=== PATIENT | female | born 1960 | race African-American/Black ===

== ENCOUNTER 2018-08-16 19:58 | Inpatient (IN) | payer MEDICARE, MEDICAID ==
[~2018-08-16] VITALS: Ht 170.2 cm; Wt 115.7 kg
[2018-08-16 21:26] LABS: CHLORIDE 111 mEq/L (98-107)
[2018-08-16 22:59] LABS: EOSINOPHILS % 2.5 % (0.0-5.0); HEMATOCRIT. 33.3 % (36.0-48.0); HEMOGLOBIN. 10.7 g/dL (12.0-16.0); LYMPHOCYTES % 41.6 % (20.0-50.0); MEAN CORPUSCULAR HEMOGLOBIN 25.4 pg (28.0-32.0); MEAN CORPUSCULAR VOLUME 79.3 fL (81.0-99.0); MONOCYTES % 12.6 % (2.0-8.0); NEUTROPHILS % 42.3 % (40.0-76.0); RED CELL DISTRIBUTION WIDTH 15.2 % (11.6-14.6)
[2018-08-17] MEDS ORDERED: DEXT 5%/0.45% NACL 1000ML 1,000 ML IV SCH (01:10)
[2018-08-17] MEDS ORDERED: GUAIFENESIN 200MG/10ML SUGAR FREE UDC PO PRN (01:15)
[2018-08-17] MEDS ORDERED: MAGNESIUM/ALUMINUM HYDROXIDE/SIMETHICONE 30ML UDC PO PRN (01:15)
[2018-08-17] MEDS ORDERED: DIPHENHYDRAMINE 50MG/ML VIAL IV PRN (01:15)
[2018-08-17] MEDS ORDERED: LORAZEPAM 0.5MG TABLET PO PRN (01:15)
[2018-08-17] MEDS ORDERED: MORPHINE SULFATE 4 MG/ML CPJ (NOT FOR IM USE) IV ONE (01:15)
[2018-08-17] MEDS ORDERED: HYDROCODONE/ACETAMINOPHEN 5/325MG TABLET PO PRN (01:15)
[2018-08-17] MEDS ORDERED: ASPIRIN 81MG TABLET PO ONE (01:15)
[2018-08-17] MEDS ORDERED: METHYLPREDNISOLONE SOD SUCC 125 MG/2 ML VIAL IV SCH ×3 (01:15→03:00)
[2018-08-17] MEDS ORDERED: IPRATROPIUM/ALBUTEROL 0.5-3(2.5)MG/3ML NEB INH PRN (01:15)
[2018-08-17] MEDS ORDERED: DOCUSATE SODIUM 100MG CAPSULE PO PRN (01:15)
[2018-08-17] MEDS ORDERED: CLONIDINE 0.1MG TABLET PO PRN (01:15)
[2018-08-17] MEDS ORDERED: ACETAMINOPHEN 325MG TABLET PO PRN (01:15)
[2018-08-17] MEDS ORDERED: ONDANSETRON HCL 4MG/2ML INJ IV PRN (01:15)
[2018-08-17] MEDS ORDERED: LIDOCAINE/EPINEPHR/TETRACAINE 3ML TP ONE (01:30)
[2018-08-17] MEDS ORDERED: HYDRALAZINE 20MG/ML VIAL IV PRN (03:15)
[2018-08-17 05:00] VITALS: BP 183/68
[2018-08-17] MEDS ORDERED: HYDR-4009 PO (05:19)
[2018-08-17] MEDS ORDERED: LISI40TA4 PO (05:19)
[2018-08-17] MEDS ORDERED: ASPI-1159 PO (05:19)
[2018-08-17] MEDS ORDERED: FOLI-43 PO (05:19)
[2018-08-17] MEDS ORDERED: AZAT50TA18 PO (05:19)
[2018-08-17] MEDS ORDERED: VERA240C2 PO (05:19)
[2018-08-17] MEDS ORDERED: IOHEXOL-350 100 ML BOTTLE ONE (05:40)
[2018-08-17 08:00] VITALS: BP 171/69
[2018-08-17 08:56] LABS: INR 0.9; PARTIAL THROMBOPLASTIN TIME 23.6 sec (23.4-31.0); PROTHROMBIN TIME 9.4 sec (9.1-11.1)
[2018-08-17 09:12] LABS: PHOSPHORUS 2.3 mg/dL (2.5-4.9)
[2018-08-17] MEDS: LISINOPRIL 20MG TABLET PO SCH ×2 (09:34→21:28)
[2018-08-17 10:06] LABS: BASOPHILS % 0.3 % (0.0-2.0); EOSINOPHILS % 0.1 % (0.0-5.0); HEMATOCRIT. 34.4 % (36.0-48.0); MEAN CORPUSCULAR HEMOGLOBIN 25.4 pg (28.0-32.0); MEAN CORPUSCULAR VOLUME 79.2 fL (81.0-99.0); MEAN PLATELET VOLUME 11.7 fl (7.4-10.4); MONOCYTES % 1.8 % (2.0-8.0); NEUTROPHILS % 80.8 % (40.0-76.0); PLATELET 128 x1000/uL (130-400); RED BLOOD CELL COUNT 4.35 mill/uL (4.2-5.4); RED CELL DISTRIBUTION WIDTH 15.6 % (11.6-14.6)
[2018-08-17 11:40] VITALS: BP 157/74
[2018-08-17 16:07] VITALS: BP 142/73
[2018-08-17] MEDS: HYDROCODONE/ACETAMINOPHEN 10/325MG TABLET PO PRN ×2 (16:08→21:36)
[2018-08-17] MEDS: VERAPAMIL HCL 80 MG TABLET PO SCH ×2 (16:14→21:28)
[2018-08-17 19:09] LABS: INR 0.9; PROTHROMBIN TIME 9.4 sec (9.1-11.1)
[2018-08-17 20:00] VITALS: BP 148/58
[2018-08-17] MEDS ORDERED: VERAPAMIL HCL 120 MG PO SCH (21:00)
[2018-08-18 00:01] VITALS: BP 134/55
[2018-08-18 03:51] VITALS: BP 140/56
[2018-08-18] MEDS: VERAPAMIL HCL 80 MG TABLET PO SCH ×3 (06:01→20:32)
[2018-08-18] MEDS: HYDROCODONE/ACETAMINOPHEN 10/325MG TABLET PO PRN (06:01)
[2018-08-18 06:15] LABS: CHLORIDE 109 mEq/L (98-107)
[2018-08-18 06:17] LABS: HEMATOCRIT. 30.8 % (36.0-48.0); MEAN CORPUSCULAR HEMOGLOBIN 25.7 pg (28.0-32.0); MEAN CORPUSCULAR VOLUME 79.2 fL (81.0-99.0); MEAN PLATELET VOLUME 11.3 fl (7.4-10.4); PLATELET 126 x1000/uL (130-400); RED BLOOD CELL COUNT 3.89 mill/uL (4.2-5.4)
[2018-08-18 06:37] LABS: LDL CHOLESTEROL 83 mg/dL (5-100)
[2018-08-18 06:39] LABS: HDL CHOLESTEROL 50 mg/dL (40-59); T4 FREE 0.87 ng/dL (0.76-1.46)
[2018-08-18 08:01] VITALS: BP 128/80
[2018-08-18 09:59] LABS: PLATELET ESTIMATE SLIGHTLY DECREASED
[2018-08-18] MEDS: LISINOPRIL 20MG TABLET PO SCH ×2 (10:00→20:31)
[2018-08-18 12:04] VITALS: BP 136/61
[2018-08-18] MEDS ORDERED: LIDOCAINE HCL 1% 20ML VIAL (Pyxis) INJ ONE (14:29)
[2018-08-18] MEDS: MORPHINE SULFATE 4 MG/ML CPJ (NOT FOR IM USE) IV PRN ×2 (15:56→20:33)
[2018-08-18 16:00] LABS: GLUCOSE CSF 55 mg/dL (41-75)
[2018-08-18 16:52] VITALS: BP 156/74
[2018-08-18 20:00] VITALS: BP 158/65
[2018-08-19] VITALS: BP 149/66
[2018-08-19] MEDS: MORPHINE SULFATE 4 MG/ML CPJ (NOT FOR IM USE) IV PRN ×4 (01:49→21:47)
[2018-08-19 04:00] VITALS: BP 135/64
[2018-08-19 07:39] LABS: HEMATOCRIT 33.5 % (36.0-48.0); HEMOGLOBIN 10.8 g/dL (12.0-16.0); MEAN CORPUSCULAR HEMOGLOBIN 25.6 pg (28.0-32.0); MEAN CORPUSCULAR VOLUME 79.5 fL (81.0-99.0); PLATELET 144 x1000/uL (130-400); RED BLOOD CELL COUNT 4.22 mill/uL (4.2-5.4); RED CELL DISTRIBUTION WIDTH 15.1 % (11.6-14.6)
[2018-08-19 08:29] VITALS: BP 138/74
[2018-08-19 08:45] LABS: CHLORIDE 107 mEq/L (98-107)
[2018-08-19] MEDS: LISINOPRIL 20MG TABLET PO SCH ×2 (08:55→21:41)
[2018-08-19] MEDS: VERAPAMIL HCL 80 MG TABLET PO SCH ×2 (08:55→21:40)
[2018-08-19 12:57] VITALS: BP 125/57
[2018-08-19 16:34] VITALS: BP 135/66
[2018-08-19 18:00] LABS: *AMPHETAMINES SCREEN URINE NEGATIVE (NEGATIVE); *BARBITURATES SCREEN URINE NEGATIVE (NEGATIVE); *BENZODIAZEPINES SCREEN URINE NEGATIVE (NEGATIVE); *COCAINE SCREEN URINE NEGATIVE (NEGATIVE); METHADONE URINE SCREEN NEGATIVE (NEGATIVE)
[2018-08-19 18:01] LABS: CANNABINOID URINE SCREEN PRESUMTIVE POSITIVE (NEGATIVE); OPIATES URINE SCREEN PRESUMTIVE POSITIVE (NEGATIVE); PHENCYCLIDINE URINE SCREEN NEGATIVE (NEGATIVE)
[2018-08-19 20:00] VITALS: BP 121/58
[2018-08-19] MEDS: TOPIRAMATE 25MG TABLET PO SCH (21:00)
[2018-08-20] VITALS: BP 136/57
[2018-08-20] MEDS: MORPHINE SULFATE 4 MG/ML CPJ (NOT FOR IM USE) IV PRN ×2 (02:34→09:56)
[2018-08-20 05:00] VITALS: BP 141/64
[2018-08-20 08:06] VITALS: BP 118/55
[2018-08-20] MEDS: LISINOPRIL 20MG TABLET PO SCH ×2 (08:15→20:28)
[2018-08-20] MEDS: VERAPAMIL HCL 80 MG TABLET PO SCH ×2 (08:15→20:22)
[2018-08-20] MEDS: TOPIRAMATE 25MG TABLET PO SCH (08:18)
[2018-08-20 10:16] LABS: BASOPHILS % 0.8 % (0.0-2.0); EOSINOPHILS % 2.4 % (0.0-5.0); HEMATOCRIT. 33.7 % (36.0-48.0); HEMOGLOBIN. 10.8 g/dL (12.0-16.0); LYMPHOCYTES % 37.2 % (20.0-50.0); MEAN CORPUSCULAR HEMOGLOBIN 25.5 pg (28.0-32.0); MEAN CORPUSCULAR VOLUME 79.3 fL (81.0-99.0); MEAN PLATELET VOLUME 10.8 fl (7.4-10.4); MONOCYTES % 13.3 % (2.0-8.0); NEUTROPHILS % 46.3 % (40.0-76.0); PLATELET 147 x1000/uL (130-400); RED BLOOD CELL COUNT 4.25 mill/uL (4.2-5.4)
[2018-08-20 10:40] LABS: CHLORIDE 104 mEq/L (98-107)
[2018-08-20 11:59] VITALS: BP 146/50
[2018-08-20] MEDS: ACETAZOLAMIDE 250MG TABLET PO SCH ×2 (12:30→20:22)
[2018-08-20] MEDS: HYDROCODONE/ACETAMINOPHEN 10/325MG TABLET PO PRN ×2 (14:52→20:23)
[2018-08-20 15:54] VITALS: BP 139/58
[2018-08-20 20:00] VITALS: BP 133/68
[2018-08-21] VITALS: BP 110/60
[2018-08-21] MEDS: HYDROCODONE/ACETAMINOPHEN 10/325MG TABLET PO PRN ×2 (01:38→08:51)
[2018-08-21 04:00] VITALS: BP 119/51
[2018-08-21 06:17] LABS: BASOPHILS % 0.4 % (0.0-2.0); EOSINOPHILS % 2.9 % (0.0-5.0); HEMATOCRIT. 33.7 % (36.0-48.0); HEMOGLOBIN. 10.9 g/dL (12.0-16.0); LYMPHOCYTES % 33.9 % (20.0-50.0); MEAN CORPUSCULAR HEMOGLOBIN 25.9 pg (28.0-32.0); MEAN CORPUSCULAR VOLUME 79.8 fL (81.0-99.0); MEAN PLATELET VOLUME 10.6 fl (7.4-10.4); MONOCYTES % 12.7 % (2.0-8.0); NEUTROPHILS % 50.1 % (40.0-76.0); PLATELET 149 x1000/uL (130-400); RED BLOOD CELL COUNT 4.23 mill/uL (4.2-5.4)
[2018-08-21 06:27] LABS: CHLORIDE 106 mEq/L (98-107)
[2018-08-21 08:02] VITALS: BP 131/57
[2018-08-21] MEDS: ACETAZOLAMIDE 250MG TABLET PO SCH (08:37)
[2018-08-21] MEDS: LISINOPRIL 20MG TABLET PO SCH (08:38)
[2018-08-21] MEDS: VERAPAMIL HCL 80 MG TABLET PO SCH (08:38)
[2018-08-21] MEDS ORDERED: ACET250T3 PO (10:52)
[2018-08-21 12:00] VITALS: BP 145/63
[2018-08-21 14:39] VITALS: BP 145/63
== END 2018-08-21 16:32 | disposition home or self-care (01) | DRG 103 ==
LOC: ER 19:58 → 6WST 23:59 → EDBEDREQTM 08-17 00:07 → EDBEDREQ 08-17 00:07 → ENRESERV 08-17 00:10 → 6WST 08-17 04:30
PROVIDERS: ADMIT Specialist; ATTEND Specialist
PROC: 009U3ZX Drainage of Spinal Canal, Percutaneous Approach, Diagnostic (ICD-10-PCS; principal; 2018-08-18)
PROC: B01B1ZZ Fluoroscopy of Spinal Cord using Low Osmolar Contrast (ICD-10-PCS; 2018-08-18)
DX: G93.2 Benign intracranial hypertension (principal); I42.9 Cardiomyopathy, unspecified; M32.9 Systemic lupus erythematosus, unspecified; F41.9 Anxiety disorder, unspecified; I10 Essential (primary) hypertension; I25.10 Atherosclerotic heart disease of native coronary artery without angina pectoris; R07.89 Other chest pain; J45.909 Unspecified asthma, uncomplicated; M41.9 Scoliosis, unspecified; I48.0 Paroxysmal atrial fibrillation; R32 Unspecified urinary incontinence; R79.89 Other specified abnormal findings of blood chemistry; Z60.2 Problems related to living alone; Z90.710 Acquired absence of both cervix and uterus; Z90.49 Acquired absence of other specified parts of digestive tract; I25.2 Old myocardial infarction; Z82.49 Family history of ischemic heart disease and other diseases of the circulatory system; Z87.81 Personal history of (healed) traumatic fracture
CPT/HCPCS: 36415; 62270; 70450; 70490; 70544; 70551; 71045; 71275; 77003; 80048; 80053; 80061; 80305; 82945; 83690; 83735; 83880; 84100; 84157; 84439; 84443; 84484; 85025; 85027; 85576; 85610; 85651; 85730; 86141; 86635; 87070; 87205; 87252; 87899; 89050; 93005; 93306; 93970; 96361; 96374; 99285; J2270; J2405; J2930; J3490; Q9967

== ENCOUNTER 2019-05-19 22:52 | Inpatient (IN) | payer MEDICARE, MEDICAID ==
[~2019-05-19] VITALS: Ht 170.2 cm; Wt 129.3 kg
[~2019-05-19 22:52] MED LIST: ACET250T3 PO; ASPI-1393 PO; AZAT50TA18 PO; FOLI-43 PO; HYDR-4009 PO; LISI40TA4 PO; VERA240C2 PO
[2019-05-20] MEDS ORDERED: ASPIRIN 325MG EC TABLET PO ONE (00:15)
[2019-05-20 00:35] LABS: BASOPHILS % 0.2 % (0.0-2.0); EOSINOPHILS % 2.4 % (0.0-5.0); HEMATOCRIT. 32.5 % (36.0-48.0); HEMOGLOBIN. 10.4 g/dL (12.0-16.0); LYMPHOCYTES % 39.8 % (20.0-50.0); MEAN CORPUSCULAR HEMOGLOBIN 25.3 pg (28.0-32.0); MEAN CORPUSCULAR VOLUME 78.6 fL (81.0-99.0); MEAN PLATELET VOLUME 9.3 fl (7.4-10.4); NEUTROPHILS % 45.6 % (40.0-76.0); PLATELET 207 x1000/uL (130-400); RED BLOOD CELL COUNT 4.14 mill/uL (4.2-5.4); RED CELL DISTRIBUTION WIDTH 15.9 % (11.6-14.6)
[2019-05-20 00:39] LABS: CHLORIDE 109 mEq/L (98-107)
[2019-05-20] MEDS ORDERED: IOHEXOL-350 100 ML BOTTLE ONE (03:49)
[2019-05-20 04:00] VITALS: BP 159/60
[2019-05-20] MEDS ORDERED: ALBU4TAB6 PO (05:06)
[2019-05-20] MEDS ORDERED: PRED-276 PO (05:06)
[2019-05-20] MEDS ORDERED: HYDR200T80 PO (05:06)
[2019-05-20] MEDS ORDERED: MEDICATION NOT ON FORMULARY EA (Hydrocodone Bit/Acetaminophen (Hydrocodon-Acetaminophn 1 PO SCH (07:15)
[2019-05-20] MEDS ORDERED: ATEN50TA PO (07:18)
[2019-05-20 08:00] VITALS: BP 135/60
[2019-05-20] MEDS ORDERED: MEDICATION NOT ON FORMULARY EA (Hydrocodone Bit/Acetaminophen (Hydrocodon-Acetaminophn 1 PO PRN (08:00)
[2019-05-20] MEDS ORDERED: ATENOLOL PO SCH (09:00)
[2019-05-20] MEDS ORDERED: PREDNISOLONE PO SCH (09:00)
[2019-05-20] MEDS ORDERED: ASPIRIN 81MG TABLET PO SCH (09:00)
[2019-05-20] MEDS ORDERED: HYDROXYCHLOROQUINE SULFATE PO SCH (09:00)
[2019-05-20] MEDS ORDERED: MEDICATION NOT ON FORMULARY EA (Folic Acid 1 MG) PO SCH (09:00)
[2019-05-20] MEDS: FOLIC ACID 1MG TABLET PO SCH (09:14)
[2019-05-20] MEDS: ENOXAPARIN 30MG/0.3ML SYR SUBCUT SCH ×2 (09:15→20:14)
[2019-05-20] MEDS: PREDNISONE 20MG TABLET PO SCH ×2 (09:15→17:47)
[2019-05-20] MEDS: HYDROCODONE/ACETAMINOPHEN 10/325MG TABLET PO PRN ×3 (09:15→21:45)
[2019-05-20] MEDS ORDERED: AZAT50TA18 PO (09:25)
[2019-05-20 12:00] VITALS: BP 186/86
[2019-05-20] MEDS: LISINOPRIL 40MG TABLET PO SCH (12:04)
[2019-05-20] MEDS: ATENOLOL 25MG TABLET PO SCH ×2 (12:30→20:14)
[2019-05-20 16:00] VITALS: BP 166/80
[2019-05-20 17:00] VITALS: BP 138/60
[2019-05-20] MEDS ORDERED: CLONIDINE 0.1MG TABLET PO PRN (19:30)
[2019-05-20 20:00] VITALS: BP 160/59
[2019-05-21] VITALS (8 sets, daily range): BP systolic 106–178; BP diastolic 49–81
[2019-05-21] MEDS: HYDROCODONE/ACETAMINOPHEN 10/325MG TABLET PO PRN ×3 (02:12→13:59)
[2019-05-21] MEDS ORDERED: ONDANSETRON HCL 4MG/2ML INJ IV PRN (06:15)
[2019-05-21 07:16] LABS: BASOPHILS % 0.3 % (0.0-2.0); HEMATOCRIT. 32.2 % (36.0-48.0); LYMPHOCYTES % 36.5 % (20.0-50.0); MEAN CORPUSCULAR HEMOGLOBIN 24.7 pg (28.0-32.0); MEAN CORPUSCULAR VOLUME 79.4 fL (81.0-99.0); MEAN PLATELET VOLUME 10.5 fl (7.4-10.4); MONOCYTES % 9.3 % (2.0-8.0); NEUTROPHILS % 53.9 % (40.0-76.0); PLATELET 197 x1000/uL (130-400); RED BLOOD CELL COUNT 4.05 mill/uL (4.2-5.4)
[2019-05-21] MEDS ORDERED: ASPIRIN 81MG EC TABLET PO SCH (09:00)
[2019-05-21] MEDS: ATENOLOL 25MG TABLET PO SCH (09:00)
[2019-05-21] MEDS ORDERED: ASPIRIN 81MG TABLET PO SCH (09:00)
[2019-05-21] MEDS: LISINOPRIL 40MG TABLET PO SCH (09:09)
[2019-05-21] MEDS: PREDNISONE 20MG TABLET PO SCH (09:09)
[2019-05-21] MEDS: FOLIC ACID 1MG TABLET PO SCH (09:09)
[2019-05-21] MEDS: ENOXAPARIN 30MG/0.3ML SYR SUBCUT SCH (09:11)
[2019-05-21 09:45] LABS: CHLORIDE 108 mEq/L (98-107)
== END 2019-05-21 17:20 | disposition home or self-care (01) | DRG 392 ==
LOC: ER 22:52 → 7WST 05-20 01:35 → EDBEDREQTM 05-20 01:42 → EDBEDREQ 05-20 01:42 → ENRESERV 05-20 02:35
PROVIDERS: ADMIT Family Medicine; ATTEND Family Medicine
DX: K21.9 Gastro-esophageal reflux disease without esophagitis (principal); Z68.41 Body mass index [BMI] 40.0-44.9, adult; W18.39XA Other fall on same level, initial encounter; F41.9 Anxiety disorder, unspecified; I11.9 Hypertensive heart disease without heart failure; I48.0 Paroxysmal atrial fibrillation; M32.9 Systemic lupus erythematosus, unspecified; M79.7 Fibromyalgia; E66.9 Obesity, unspecified; Y93.89 Activity, other specified; Y92.89 Other specified places as the place of occurrence of the external cause; Y99.8 Other external cause status; Z79.82 Long term (current) use of aspirin; Z82.49 Family history of ischemic heart disease and other diseases of the circulatory system; Z90.49 Acquired absence of other specified parts of digestive tract; Z90.710 Acquired absence of both cervix and uterus; Z88.0 Allergy status to penicillin; Z79.899 Other long term (current) drug therapy; Z87.81 Personal history of (healed) traumatic fracture
CPT/HCPCS: 36415; 71045; 71275; 80048; 83880; 84484; 85379; 93005; 93306; 99285; J1650; J2405; J7512; Q9967

== ENCOUNTER 2020-07-27 04:46 | Inpatient (IN) | payer MEDICARE, MEDICAID ==
[~2020-07-27] VITALS: Ht 172.7 cm; Wt 133.0 kg
[2020-07-27] VITALS (10 sets, daily range): BP systolic 111–184; BP diastolic 44–107
[~2020-07-27 04:46] MED LIST changes: -ASPI-1393 PO; +ASPI-1497 PO; +ATEN50TA PO; -LISI40TA4 PO; +PRED-276 PO; -VERA240C2 PO
[2020-07-27] MEDS ORDERED: ASPIRIN 81MG TABLET PO ONE (05:00)
[2020-07-27 05:34] LABS: BASOPHILS % 0.3 % (0.0-2.0); EOSINOPHILS % 0.1 % (0.0-5.0); HEMATOCRIT. 22.9 % (36.0-48.0); HEMOGLOBIN. 7.6 g/dL (12.0-16.0); LYMPHOCYTES % 18.9 % (20.0-50.0); MEAN CORPUSCULAR HEMOGLOBIN 31.4 pg (28.0-32.0); MEAN CORPUSCULAR VOLUME 95.2 fL (81.0-99.0); MEAN PLATELET VOLUME 10.5 fl (7.4-10.4); MONOCYTES % 7.4 % (2.0-8.0); NEUTROPHILS % 73.3 % (40.0-76.0); PLATELET 120 x1000/uL (130-400); RED CELL DISTRIBUTION WIDTH 14.8 % (11.6-14.6)
[2020-07-27 05:36] LABS: CHLORIDE 108 mEq/L (98-107)
[2020-07-27 08:40] LABS: T4 FREE 1.04 ng/dL (0.76-1.46)
[2020-07-27 10:31] LABS: PHOSPHORUS 2.7 mg/dL (2.5-4.9)
[2020-07-27] MEDS: FOLIC ACID 1MG TABLET PO SCH (10:43)
[2020-07-27] MEDS: PREDNISONE 20MG TABLET PO SCH ×2 (10:43→17:54)
[2020-07-27] MEDS: AZATHIOPRINE 50MG TABLET PO SCH ×2 (10:43→17:54)
[2020-07-27] MEDS ORDERED: CLON0.2T MT (11:07)
[2020-07-27] MEDS ORDERED: VERA120C10 MT (11:07)
[2020-07-27] MEDS: HYDROCODONE/ACETAMINOPHEN 10/325MG TABLET PO PRN ×2 (11:22→18:49)
[2020-07-27] MEDS: SODIUM CHLORIDE 0.9% 1,000 ML IV SCH (11:48)
[2020-07-27] MEDS ORDERED: DOPAMINE 400MG/250ML PREMIX 250 ML IV PRN (15:15)
[2020-07-27] MEDS ORDERED: ATROPINE SULFATE 1MG/ML VIAL IV PRN (15:15)
[2020-07-27] MEDS ORDERED: ATROPINE SULFATE 1MG/10ML SYR IV PRN (15:20)
[2020-07-28] VITALS (12 sets, daily range): BP systolic 116–191; BP diastolic 41–87
[2020-07-28 01:09] LABS: *AMPHETAMINES SCREEN URINE NEGATIVE (NEGATIVE); *BARBITURATES SCREEN URINE NEGATIVE (NEGATIVE); *COCAINE SCREEN URINE NEGATIVE (NEGATIVE); CANNABINOID URINE SCREEN NEGATIVE (NEGATIVE); METHADONE URINE SCREEN NEGATIVE (NEGATIVE); OPIATES URINE SCREEN PRESUMTIVE POSITIVE (NEGATIVE); PHENCYCLIDINE URINE SCREEN NEGATIVE (NEGATIVE)
[2020-07-28 01:10] LABS: *BENZODIAZEPINES SCREEN URINE NEGATIVE (NEGATIVE)
[2020-07-28] MEDS: HYDROCODONE/ACETAMINOPHEN 10/325MG TABLET PO PRN ×3 (04:42→18:16)
[2020-07-28] MEDS: ASPIRIN 81MG TABLET PO SCH (08:30)
[2020-07-28] MEDS: AZATHIOPRINE 50MG TABLET PO SCH ×2 (08:30→16:51)
[2020-07-28] MEDS: PREDNISONE 20MG TABLET PO SCH ×2 (08:30→16:51)
[2020-07-28] MEDS: FOLIC ACID 1MG TABLET PO SCH (08:30)
[2020-07-28] MEDS: SODIUM CHLORIDE 0.9% 1,000 ML IV SCH (08:31)
[2020-07-28] MEDS ORDERED: HYDRALAZINE HCL 10MG TABLET PO PRN (11:00)
[2020-07-28] MEDS: DIPHENHYDRAMINE 50MG/ML VIAL IV PRN (14:11)
[2020-07-28 15:30] LABS: BASOPHILS % 0.5 % (0.0-2.0); LYMPHOCYTES % 29.6 % (20.0-50.0); MEAN CORPUSCULAR HEMOGLOBIN 30.8 pg (28.0-32.0); MEAN CORPUSCULAR VOLUME 94.1 fL (81.0-99.0); MEAN PLATELET VOLUME 10.8 fl (7.4-10.4); MONOCYTES % 10.5 % (2.0-8.0); NEUTROPHILS % 59.4 % (40.0-76.0); PLATELET 109 x1000/uL (130-400); RED BLOOD CELL COUNT 2.29 mill/uL (4.2-5.4); RED CELL DISTRIBUTION WIDTH 14.6 % (11.6-14.6)
[2020-07-28 15:52] LABS: HEMATOCRIT. 21.5 % (36.0-48.0)
[2020-07-28 15:55] LABS: CHLORIDE 107 mEq/L (98-107)
[2020-07-28] MEDS ORDERED: POTASSIUM CHLORIDE 20MEQ TABLET SR PO NR (16:45)
[2020-07-28] MEDS: HYDRALAZINE HCL 50MG TABLET PO PRN (21:37)
[2020-07-29] VITALS (12 sets, daily range): BP systolic 151–184; BP diastolic 47–90
[2020-07-29] MEDS: HYDROCODONE/ACETAMINOPHEN 10/325MG TABLET PO PRN ×5 (00:46→23:53)
[2020-07-29] MEDS: METHYLPREDNISOLONE SOD SUCC 40 MG/ML VIAL IV SCH ×5 (00:46→23:52)
[2020-07-29] MEDS: SODIUM CHLORIDE 0.9% 1,000 ML IV SCH ×2 (03:15→23:55)
[2020-07-29 03:34] LABS: CLARITY URINE TURBID (CLEAR); COLOR URINE YELLOW (YELLOW); KETONES URINE NEGATIVE (NEGATIVE); LEUKOCYTE ESTERASE URINE 3+ (NEGATIVE); NITRITE URINE NEGATIVE (NEGATIVE); OCCULT BLOOD URINE NEGATIVE (NEGATIVE); PROTEIN URINE 2+ (NEGATIVE); SPECIFIC GRAVITY URINE 1.012 (1.005-1.030)
[2020-07-29 08:08] LABS: BASOPHILS % 0.6 % (0.0-2.0); HEMATOCRIT. 21.7 % (36.0-48.0); HEMOGLOBIN. 7.1 g/dL (12.0-16.0); LYMPHOCYTES % 19.7 % (20.0-50.0); MEAN CORPUSCULAR HEMOGLOBIN 31.4 pg (28.0-32.0); MEAN CORPUSCULAR VOLUME 95.7 fL (81.0-99.0); MEAN PLATELET VOLUME 11.8 fl (7.4-10.4); NEUTROPHILS % 76.7 % (40.0-76.0); PLATELET 117 x1000/uL (130-400); RED BLOOD CELL COUNT 2.26 mill/uL (4.2-5.4); RED CELL DISTRIBUTION WIDTH 14.7 % (11.6-14.6)
[2020-07-29] MEDS ORDERED: LIDOCAINE HCL 1% 20ML VIAL (Pyxis) INJ ONE (08:25)
[2020-07-29] MEDS: DICLOFENAC SODIUM 75MG DR (EC) TABLET PO SCH ×2 (09:00→20:21)
[2020-07-29] MEDS ORDERED: HYDROCORTISONE 2.5% CREAM 20GM TOP SCH (09:00)
[2020-07-29] MEDS ORDERED: PREGABALIN 25MG CAPSULE PO SCH (09:00)
[2020-07-29] MEDS: FOLIC ACID 1MG TABLET PO SCH (09:00)
[2020-07-29] MEDS: ASPIRIN 81MG TABLET PO SCH (09:00)
[2020-07-29] MEDS: HYDROXYCHLOROQUINE SULFATE 200MG TABLET PO SCH ×2 (09:00→17:53)
[2020-07-29] MEDS: AZATHIOPRINE 50MG TABLET PO SCH ×2 (09:00→17:44)
[2020-07-29] MEDS: HYDROCORTISONE 2.5% OINT 20GM TOP SCH ×2 (09:15→20:43)
[2020-07-29] MEDS: TRIAMCINOLONE ACETONIDE 0.1% CREAM 15GM TOP SCH ×2 (09:16→20:43)
[2020-07-29 09:33] LABS: CHLORIDE 108 mEq/L (98-107)
[2020-07-29 09:56] LABS: CREATINE KINASE 119 IU/L (26-192); TOTAL IRON BINDING CAPACITY 229 ug/dL (250-450)
[2020-07-29] MEDS: HYDRALAZINE HCL 50MG TABLET PO PRN (10:52)
[2020-07-29] MEDS: PREGABALIN 50 MG CAPSULE PO SCH (20:21)
[2020-07-29] MEDS: AMLODIPINE 2.5MG TABLET PO SCH (20:21)
[2020-07-29] MEDS: DIPHENHYDRAMINE 50MG/ML VIAL IV PRN (20:31)
[2020-07-29] MEDS: LEVOFLOXACIN 500MG PREMIX 100 ML IV SCH (23:58)
[2020-07-30] VITALS (8 sets, daily range): BP systolic 140–184; BP diastolic 72–96
[2020-07-30] MEDS: DIPHENHYDRAMINE 50MG/ML VIAL IV PRN (02:19)
[2020-07-30] MEDS: METHYLPREDNISOLONE SOD SUCC 40 MG/ML VIAL IV SCH ×3 (05:16→19:00)
[2020-07-30] MEDS: HYDRALAZINE HCL 50MG TABLET PO PRN (05:26)
[2020-07-30 07:46] LABS: BASOPHILS % 0.5 % (0.0-2.0); LYMPHOCYTES % 26.3 % (20.0-50.0); MEAN CORPUSCULAR HEMOGLOBIN 30.4 pg (28.0-32.0); MEAN CORPUSCULAR VOLUME 93.8 fL (81.0-99.0); MEAN PLATELET VOLUME 11.8 fl (7.4-10.4); MONOCYTES % 10.3 % (2.0-8.0); NEUTROPHILS % 62.9 % (40.0-76.0); PLATELET 114 x1000/uL (130-400); RED CELL DISTRIBUTION WIDTH 14.2 % (11.6-14.6)
[2020-07-30 07:55] LABS: HEMATOCRIT. 21.5 % (36.0-48.0)
[2020-07-30 08:05] LABS: CHLORIDE 108 mEq/L (98-107)
[2020-07-30] MEDS ORDERED: PROPOFOL 200MG/20ML VIAL IV ONE (08:27)
[2020-07-30] MEDS ORDERED: VANCOMYCIN 1 G PREMIX 200 ML IV ONE (08:30)
[2020-07-30] MEDS: FOLIC ACID 1MG TABLET PO SCH (09:00)
[2020-07-30] MEDS: AZATHIOPRINE 50MG TABLET PO SCH ×2 (09:00→18:27)
[2020-07-30] MEDS: TRIAMCINOLONE ACETONIDE 0.1% CREAM 15GM TOP SCH ×2 (09:00→21:00)
[2020-07-30] MEDS: HYDROXYCHLOROQUINE SULFATE 200MG TABLET PO SCH ×2 (09:00→18:27)
[2020-07-30] MEDS: DICLOFENAC SODIUM 75MG DR (EC) TABLET PO SCH ×2 (09:00→20:42)
[2020-07-30] MEDS: HYDROCORTISONE 2.5% OINT 20GM TOP SCH ×2 (09:00→21:00)
[2020-07-30] MEDS: PREGABALIN 50 MG CAPSULE PO SCH ×2 (09:00→20:42)
[2020-07-30] MEDS: AMLODIPINE 2.5MG TABLET PO SCH ×2 (09:00→20:42)
[2020-07-30 09:09] LABS: G6PD RBC 2.36 x10E6/uL (3.77-5.28)
[2020-07-30] MEDS ORDERED: ONDANSETRON HCL 4MG/2ML INJ IV PRN (10:30)
[2020-07-30] MEDS: HYDROMORPHONE HCL/PF 2MG/ML CPJ IV PRN ×4 (11:57→12:39)
[2020-07-30] MEDS ORDERED: LOSARTAN POTASSIUM 25 MG TABLET PO SCH (14:15)
[2020-07-30 15:08] LABS: ANTI-DNA DOUBLE STRANDED QUANT 2 IU/mL (0-9); G6PD QUANTITATIVE > 864 (127-427); RNP ANTIBODY > 8.0 AI (0.0-0.9); SMITH ANTIBODY 2.8 AI (0.0-0.9)
[2020-07-30] MEDS: HYDROCODONE/ACETAMINOPHEN 10/325MG TABLET PO PRN ×3 (15:13→23:59)
[2020-07-30] MEDS: SODIUM CHLORIDE 0.9% 1,000 ML IV SCH (19:35)
[2020-07-30] MEDS: METHYLPREDNISOLONE SOD SUCC 125 MG/2 ML VIAL IV SCH (23:45)
[2020-07-30] MEDS: PREGABALIN 75MG CAPSULE PO SCH (23:45)
[2020-07-30] MEDS: LEVOFLOXACIN 500MG PREMIX 100 ML IV SCH (23:46)
[2020-07-31] MEDS: DIPHENHYDRAMINE 50MG/ML VIAL IV PRN (01:43)
[2020-07-31 01:45] VITALS: BP 162/80
[2020-07-31 04:17] VITALS: BP 156/74
[2020-07-31 05:44] VITALS: BP 160/76
[2020-07-31] MEDS: HYDROCODONE/ACETAMINOPHEN 10/325MG TABLET PO PRN (05:47)
[2020-07-31] MEDS: METHYLPREDNISOLONE SOD SUCC 125 MG/2 ML VIAL IV SCH (05:47)
[2020-07-31 06:39] LABS: BASOPHILS % 0.2 % (0.0-2.0); HEMATOCRIT. 23.6 % (36.0-48.0); HEMOGLOBIN. 7.5 g/dL (12.0-16.0); LYMPHOCYTES % 9.2 % (20.0-50.0); MEAN CORPUSCULAR HEMOGLOBIN 29.7 pg (28.0-32.0); MEAN CORPUSCULAR VOLUME 93.5 fL (81.0-99.0); MEAN PLATELET VOLUME 11.6 fl (7.4-10.4); MONOCYTES % 2.1 % (2.0-8.0); NEUTROPHILS % 88.5 % (40.0-76.0); PLATELET 143 x1000/uL (130-400); RED BLOOD CELL COUNT 2.52 mill/uL (4.2-5.4); RED CELL DISTRIBUTION WIDTH 14.7 % (11.6-14.6)
[2020-07-31] MEDS ORDERED: PREG75CA PO (06:57)
[2020-07-31] MEDS ORDERED: METH2.5T PO (06:57)
[2020-07-31] MEDS ORDERED: HYDR200T35 PO (06:57)
[2020-07-31] MEDS ORDERED: AMLO2.5T45 PO (06:57)
[2020-07-31] MEDS ORDERED: LOSA25TA3 PO (06:57)
[2020-07-31] MEDS ORDERED: PRED-276 PO (06:57)
[2020-07-31 07:30] VITALS: BP 165/82
[2020-07-31] MEDS ORDERED: SULF1TAB48 MT (07:36)
[2020-07-31] MEDS: FOLIC ACID 1MG TABLET PO SCH (08:32)
[2020-07-31] MEDS: HYDROXYCHLOROQUINE SULFATE 200MG TABLET PO SCH (08:32)
[2020-07-31] MEDS: DICLOFENAC SODIUM 75MG DR (EC) TABLET PO SCH (08:32)
[2020-07-31] MEDS: PREGABALIN 75MG CAPSULE PO SCH (08:32)
[2020-07-31] MEDS: AMLODIPINE 2.5MG TABLET PO SCH (08:33)
[2020-07-31 08:57] VITALS: BP 165/82
[2020-07-31] MEDS ORDERED: METHOTREXATE SODIUM 2 . 5MG TABLET PO SCH (09:00)
[2020-07-31] MEDS ORDERED: LOSARTAN POTASSIUM 25 MG TABLET PO SCH (09:00)
[2020-07-31 09:07] LABS: ANGIOTENSION CONVERTING ENZYME 86 U/L (14-82)
[2020-07-31 10:10] LABS: GLOMERULAR BASEMENT MEMB AB 6 units (0-20)
[2020-07-31 13:07] LABS: VITAMIN D 1-25 DIHYDROXY 58.5 pg/mL (19.9-79.3)
[2020-08-01 09:11] LABS: ALDOLASE 9.4 U/L (3.3-10.3); ANTI-CARDIOLIPIN AB IGG 9 GPL U/mL (0-14); ANTI-CARDIOLIPIN AB IGM 66 MPL U/mL (0-12)
[2020-08-01 13:07] LABS: ANTI-MYELOPEROXIDASE AB < 9.0 U/mL (0.0-9.0); ANTI-PROTEINASE 3 ABS < 3.5 U/mL (0.0-3.5); ATYPICAL P-ANCA <1:20 titer (Neg:<1:20); CYTOPLASMIC C-ANCA <1:20 titer (Neg:<1:20)
[2020-08-01 14:08] LABS: ANA IFA Positive (.); ANA SPECKLED PATTERN >1:1280 (.)
== END 2020-07-31 09:35 | disposition home or self-care (01) | DRG 242 ==
LOC: ER 04:46 → EDBEDREQ 07:07 → EDBEDREQTM 07:07 → 5EST 07:10 → EDBEDREQSVC 07:15 → EDBEDREQTM 07:15 → ENRESERV 07:32 → 3WST 07-30 13:53
PROVIDERS: ADMIT Family Medicine; ATTEND Family Medicine
PROC: 02HV33Z Insertion of Infusion Device into Superior Vena Cava, Percutaneous Approach (ICD-10-PCS; 2020-07-29)
PROC: B548ZZA Ultrasonography of Superior Vena Cava, Guidance (ICD-10-PCS; 2020-07-29)
PROC: 4A023N6 Measurement of Cardiac Sampling and Pressure, Right Heart, Percutaneous Approach (ICD-10-PCS; principal; 2020-07-30)
PROC: 0JH606Z Insertion of Pacemaker, Dual Chamber into Chest Subcutaneous Tissue and Fascia, Open Approach (ICD-10-PCS; 2020-07-30)
PROC: 02HK3JZ Insertion of Pacemaker Lead into Right Ventricle, Percutaneous Approach (ICD-10-PCS; 2020-07-30)
PROC: 02H63JZ Insertion of Pacemaker Lead into Right Atrium, Percutaneous Approach (ICD-10-PCS; 2020-07-30)
PROC: B5171ZZ Fluoroscopy of Left Subclavian Vein using Low Osmolar Contrast (ICD-10-PCS; 2020-07-30)
DX: I44.1 Atrioventricular block, second degree (principal); E43 Unspecified severe protein-calorie malnutrition; J98.11 Atelectasis; D61.818 Other pancytopenia; K92.1 Melena; N39.0 Urinary tract infection, site not specified; D58.9 Hereditary hemolytic anemia, unspecified; Z68.41 Body mass index [BMI] 40.0-44.9, adult; I49.5 Sick sinus syndrome; R07.9 Chest pain, unspecified; M32.9 Systemic lupus erythematosus, unspecified; K21.9 Gastro-esophageal reflux disease without esophagitis; E66.9 Obesity, unspecified; D63.8 Anemia in other chronic diseases classified elsewhere; I11.9 Hypertensive heart disease without heart failure; I27.21 Secondary pulmonary arterial hypertension; I77.6 Arteritis, unspecified; M13.0 Polyarthritis, unspecified; I34.0 Nonrheumatic mitral (valve) insufficiency; K12.1 Other forms of stomatitis; G89.29 Other chronic pain; M79.7 Fibromyalgia; I95.9 Hypotension, unspecified; Z20.828 Contact with and (suspected) exposure to other viral communicable diseases; Z88.0 Allergy status to penicillin; Z90.710 Acquired absence of both cervix and uterus; Z90.49 Acquired absence of other specified parts of digestive tract; Z68.31 Body mass index [BMI] 31.0-31.9, adult; Z95.0 Presence of cardiac pacemaker; I48.0 Paroxysmal atrial fibrillation
CPT/HCPCS: 33208; 36415; 71045; 75820; 76937; 78582; 80048; 80053; 80061; 80305; 81003; 82085; 82164; 82270; 82550; 82652; 82955; 83036; 83520; 83540; 83550; 83735; 83880; 84100; 84156; 84439; 84443; 84484; 84550; 85025; 85041; 85044; 85379; 85613; 85651; 85732; 86147; 86160; 86225; 86235; 86256; 86592; 86593; 86780; 86850; 86870; 86880; 86900; 87077; 87186; 87426; 93005; 93306; 93451; 93970; 99291; A9558; C1725; C1785; C1893; C1898; J0461; J1170; J1200; J1265; J1644; J1956; J2704; J2920; J2930; J3370; J3490; J7030; J7500; J7512; J8610

== ENCOUNTER 2020-08-21 13:25 | Inpatient (IN) | payer MEDICARE, MEDICAID ==
[~2020-08-21] VITALS: Ht 170.2 cm; Wt 131.5 kg
[~2020-08-21 13:25] MED LIST changes: -ACET250T3 PO; +AMLO2.5T45 PO; -ASPI-1497 PO; -ATEN50TA PO; -AZAT50TA18 PO; +HYDR200T35 PO; +LOSA25TA3 PO; +METH2.5T PO; +PREG75CA PO; +SULF1TAB48 MT
[2020-08-21 15:06] LABS: MEAN CORPUSCULAR HEMOGLOBIN 27.6 pg (28.0-32.0); MEAN CORPUSCULAR VOLUME 86.5 fL (81.0-99.0); MEAN PLATELET VOLUME 9.7 fl (7.4-10.4); PLATELET 291 x1000/uL (130-400); RED CELL DISTRIBUTION WIDTH 15.8 % (11.6-14.6)
[2020-08-21 15:12] LABS: CHLORIDE 111 mEq/L (98-107); HEMATOCRIT. 19.1 % (36.0-48.0); HEMOGLOBIN. 6.1 g/dL (12.0-16.0)
[2020-08-21 15:34] LABS: INR 0.9
[2020-08-21] MEDS ORDERED: POTASSIUM CHLORIDE 20MEQ TABLET SR PO SCH (15:45)
[2020-08-21 16:38] LABS: PLATELET ESTIMATE NORMAL
[2020-08-21] MEDS: LOSARTAN POTASSIUM 25 MG TABLET PO SCH (17:00)
[2020-08-21] MEDS: AMLODIPINE 2.5MG TABLET PO SCH (17:00)
[2020-08-21] MEDS ORDERED: POTASSIUM CHLORIDE 20MEQ/PACKET PO SCH (17:15)
[2020-08-21] MEDS ORDERED: HYDROCODONE/ACETAMINOPHEN 10/325MG TABLET PO ONE (17:30)
[2020-08-21] MEDS ORDERED: ONDANSETRON HCL 4MG/2ML INJ IV PRN (17:45)
[2020-08-21] MEDS ORDERED: ACETAMINOPHEN 325MG TABLET PO PRN (17:45)
[2020-08-21] MEDS ORDERED: POTASSIUM CHLORIDE 20MEQ/PACKET PO NR (18:00)
[2020-08-21] MEDS ORDERED: TRAZODONE HCL 50MG TABLET PO PRN (21:00)
[2020-08-21] MEDS ORDERED: FILGRASTIM-TBO 480 MCG/0.8 ML SYRINGE SQ SCH (23:11)
[2020-08-21 23:58] LABS: TOTAL IRON BINDING CAPACITY 176 ug/dL (250-450)
[2020-08-22] VITALS (9 sets, daily range): BP systolic 122–150; BP diastolic 41–60
[2020-08-22 04:20] LABS: CHLORIDE 113 mEq/L (98-107)
[2020-08-22 04:22] LABS: HEMATOCRIT. 21.7 % (36.0-48.0); HEMOGLOBIN. 7.1 g/dL (12.0-16.0); MEAN CORPUSCULAR HEMOGLOBIN 28.6 pg (28.0-32.0); MEAN PLATELET VOLUME 9.5 fl (7.4-10.4); PLATELET 288 x1000/uL (130-400); RED BLOOD CELL COUNT 2.49 mill/uL (4.2-5.4)
[2020-08-22 04:28] LABS: HAPTOGLOBIN 149 mg/dL (30-200)
[2020-08-22 04:31] LABS: INR 0.9
[2020-08-22 05:45] LABS: NUCLEATED RED BLOOD CELLS 2 /100 WBC
[2020-08-22 05:46] LABS: PLATELET ESTIMATE NORMAL
[2020-08-22] MEDS: AMLODIPINE 2.5MG TABLET PO SCH (08:40)
[2020-08-22] MEDS: LOSARTAN POTASSIUM 25 MG TABLET PO SCH (08:40)
[2020-08-22] MEDS: HYDROCODONE/ACETAMINOPHEN 10/325MG TABLET PO PRN ×2 (08:41→19:50)
[2020-08-22] MEDS ORDERED: FILGRASTIM-TBO 480 MCG/0.8 ML SYRINGE SQ NR (11:30)
[2020-08-22] MEDS ORDERED: MAGNESIUM 2 G PREMIX 50 ML IV NR (13:30)
[2020-08-22 14:25] LABS: HEMATOCRIT 27.1 % (36.0-48.0)
[2020-08-22 14:26] LABS: HEMATOCRIT 26.9 % (36.0-48.0)
[2020-08-22] MEDS: DIPHENHYDRAMINE 50MG CAPSULE PO PRN ×2 (15:49→21:31)
[2020-08-22] MEDS: DIPHENHYDRAMINE HCL/ZINC ACET 28 GM CREAM TOP SCH ×2 (15:49→16:04)
[2020-08-22 21:10] LABS: HEMATOCRIT 26.1 % (36.0-48.0); HEMOGLOBIN 8.9 g/dL (12.0-16.0)
[2020-08-22] MEDS: PREGABALIN 75MG CAPSULE PO SCH (21:31)
[2020-08-22] MEDS: HYDROXYCHLOROQUINE SULFATE 200MG TABLET PO SCH (22:56)
[2020-08-22] MEDS: METHYLPREDNISOLONE SOD SUCC 40 MG/ML VIAL IV SCH (22:56)
[2020-08-23] VITALS: BP 160/71
[2020-08-23 04:00] VITALS: BP 131/58
[2020-08-23] MEDS: HYDROCODONE/ACETAMINOPHEN 10/325MG TABLET PO PRN ×3 (05:56→20:42)
[2020-08-23] MEDS: METHYLPREDNISOLONE SOD SUCC 40 MG/ML VIAL IV SCH ×3 (05:57→20:41)
[2020-08-23 08:00] VITALS: BP 136/55
[2020-08-23 08:09] LABS: CHLORIDE 109 mEq/L (98-107); HEMATOCRIT. 29.2 % (36.0-48.0); HEMOGLOBIN. 9.6 g/dL (12.0-16.0); MEAN CORPUSCULAR VOLUME 88.6 fL (81.0-99.0); MEAN PLATELET VOLUME 9.9 fl (7.4-10.4); PLATELET 377 x1000/uL (130-400); RED CELL DISTRIBUTION WIDTH 16.6 % (11.6-14.6)
[2020-08-23] MEDS: HYDROXYCHLOROQUINE SULFATE 200MG TABLET PO SCH ×2 (09:04→16:51)
[2020-08-23] MEDS: DIPHENHYDRAMINE HCL/ZINC ACET 28 GM CREAM TOP SCH ×2 (09:05→16:52)
[2020-08-23] MEDS: AMLODIPINE 2.5MG TABLET PO SCH ×2 (09:05→20:41)
[2020-08-23] MEDS: PREGABALIN 75MG CAPSULE PO SCH ×2 (09:05→20:40)
[2020-08-23] MEDS: LOSARTAN POTASSIUM 25 MG TABLET PO SCH (09:05)
[2020-08-23 09:08] LABS: IMMUNOGLOBULIN A 189 mg/dL (87-352); IMMUNOGLOBULIN G 1348 mg/dL (586-1602); IMMUNOGLOBULIN M 439 mg/dL (26-217)
[2020-08-23 11:52] VITALS: BP 148/60
[2020-08-23] MEDS ORDERED: LACTULOSE 20G/30ML UDC PO NR (14:00)
[2020-08-23 15:02] LABS: PLATELET ESTIMATE NORMAL
[2020-08-23] MEDS ORDERED: SORBITOL 70% SOLN 30ML PO PRN (15:45)
[2020-08-23] MEDS ORDERED: BISACODYL 10MG SUPP PR PRN (15:45)
[2020-08-23 15:58] VITALS: BP 148/61
[2020-08-23 20:00] VITALS: BP 153/69
[2020-08-23] MEDS ORDERED: FILGRASTIM-TBO 480 MCG/0.8 ML SYRINGE SQ SCH (21:00)
[2020-08-23] MEDS: DIPHENHYDRAMINE 50MG CAPSULE PO PRN (22:38)
[2020-08-24] VITALS: BP 112/57
[2020-08-24 04:00] VITALS: BP 145/50
[2020-08-24] MEDS: METHYLPREDNISOLONE SOD SUCC 40 MG/ML VIAL IV SCH (07:11)
[2020-08-24 08:00] VITALS: BP 145/72
[2020-08-24] MEDS: DIPHENHYDRAMINE 50MG CAPSULE PO PRN ×2 (08:29→08:35)
[2020-08-24] MEDS: AMLODIPINE 2.5MG TABLET PO SCH (08:29)
[2020-08-24] MEDS: HYDROCODONE/ACETAMINOPHEN 10/325MG TABLET PO PRN ×2 (08:29→14:28)
[2020-08-24] MEDS: PREGABALIN 75MG CAPSULE PO SCH (08:29)
[2020-08-24] MEDS: LOSARTAN POTASSIUM 25 MG TABLET PO SCH (08:29)
[2020-08-24] MEDS: HYDROXYCHLOROQUINE SULFATE 200MG TABLET PO SCH (08:29)
[2020-08-24] MEDS: DIPHENHYDRAMINE HCL/ZINC ACET 28 GM CREAM TOP SCH (09:00)
[2020-08-24 11:47] LABS: HEMATOCRIT. 28.9 % (36.0-48.0); HEMOGLOBIN. 9.2 g/dL (12.0-16.0); MEAN CORPUSCULAR HEMOGLOBIN 28.4 pg (28.0-32.0); MEAN PLATELET VOLUME 9.9 fl (7.4-10.4); PLATELET 444 x1000/uL (130-400); RED BLOOD CELL COUNT 3.24 mill/uL (4.2-5.4); RED CELL DISTRIBUTION WIDTH 17.5 % (11.6-14.6)
[2020-08-24 12:00] VITALS: BP 117/36
[2020-08-24 12:35] LABS: CHLORIDE 106 mEq/L (98-107)
[2020-08-24 13:23] VITALS: BP 140/86
[2020-08-24 13:50] LABS: PLATELET ESTIMATE INCREASED
[2020-08-25 17:06] LABS: METHOTREXATE (MTX) <0.02 umol/L (0.02-5.00)
== END 2020-08-24 15:05 | disposition home or self-care (01) | DRG 545 ==
LOC: ER 14:16 → 5WST 19:00 → EDBEDREQ 19:02 → EDBEDREQTM 19:02 → ENRESERV 22:03 → 5WST 08-22 11:11
PROVIDERS: ADMIT Internal Medicine; ATTEND Internal Medicine
PROC: 30233N1 Transfusion of Nonautologous Red Blood Cells into Peripheral Vein, Percutaneous Approach (ICD-10-PCS; principal; 2020-08-21)
DX: M32.10 Systemic lupus erythematosus, organ or system involvement unspecified (principal); E43 Unspecified severe protein-calorie malnutrition; Z68.42 Body mass index [BMI] 45.0-49.9, adult; M31.8 Other specified necrotizing vasculopathies; D63.8 Anemia in other chronic diseases classified elsewhere; E87.6 Hypokalemia; D64.9 Anemia, unspecified; T45.1X5A Adverse effect of antineoplastic and immunosuppressive drugs, initial encounter; I27.20 Pulmonary hypertension, unspecified; D50.9 Iron deficiency anemia, unspecified; M79.7 Fibromyalgia; I25.10 Atherosclerotic heart disease of native coronary artery without angina pectoris; I34.0 Nonrheumatic mitral (valve) insufficiency; I27.21 Secondary pulmonary arterial hypertension; K12.1 Other forms of stomatitis; I11.9 Hypertensive heart disease without heart failure; E83.42 Hypomagnesemia; M32.9 Systemic lupus erythematosus, unspecified; E66.01 Morbid (severe) obesity due to excess calories; Z88.0 Allergy status to penicillin; Z79.1 Long term (current) use of non-steroidal anti-inflammatories (NSAID); Z79.899 Other long term (current) drug therapy; Z95.810 Presence of automatic (implantable) cardiac defibrillator; Z90.49 Acquired absence of other specified parts of digestive tract; Z90.710 Acquired absence of both cervix and uterus; D72.819 Decreased white blood cell count, unspecified
CPT/HCPCS: 36415; 71045; 80053; 80299; 82270; 82607; 82728; 82746; 82784; 83010; 83540; 83550; 83615; 83735; 85014; 85018; 85025; 85044; 85049; 85384; 86334; 86850; 86870; 86880; 86900; 86920; 93005; 99291; J1442; J2920; J3475; J7040; P9016; Q0163

== ENCOUNTER 2021-09-10 02:01 | Inpatient (IN) | payer MEDICARE, MEDICAID ==
[2021-09-10] VITALS (7 sets, daily range): BP systolic 109–168; BP diastolic 61–98
[~2021-09-10] VITALS: Ht 170.2 cm; Wt 100.0 kg
[~2021-09-10 02:01] MED LIST changes: -METH2.5T PO; -PRED-276 PO; -SULF1TAB48 MT
[2021-09-10 03:51] LABS: CHLORIDE 114 mEq/L (98-107); HEMATOCRIT. 34.1 % (36.0-48.0); HEMOGLOBIN. 10.8 g/dL (12.0-16.0); MEAN CORPUSCULAR HEMOGLOBIN 25.9 pg (28.0-32.0); MEAN PLATELET VOLUME 10.8 fl (7.4-10.4); PLATELET 130 x1000/uL (130-400); RED BLOOD CELL COUNT 4.16 mill/uL (4.2-5.4); RED CELL DISTRIBUTION WIDTH 15.4 % (11.6-14.6)
[2021-09-10 04:59] LABS: PLATELET ESTIMATE SLIGHTLY DECREASED
[2021-09-10] MEDS ORDERED: LIDOCAINE HCL 1% 10 MG/ML 10ML VIAL ONE (08:10)
[2021-09-10 08:42] LABS: INR 0.9; PARTIAL THROMBOPLASTIN TIME 21.9 sec (23.4-31.0); PROTHROMBIN TIME 9.9 sec (9.6-11.0)
[2021-09-10] MEDS ORDERED: IODIXANOL 320MG/ML 100 ML BOTTLE IV ONE (08:44)
[2021-09-10 08:46] LABS: T4 FREE 0.97 ng/dL (0.76-1.46)
[2021-09-10] MEDS ORDERED: GENTAMICIN/NS IRRIGATION 500 ML IR ONE (08:47)
[2021-09-10] MEDS ORDERED: GENTAMICIN SULF 40MG/ML 2ML VIAL ONE (08:47)
[2021-09-10 09:02] LABS: FOLIC ACID (FOLATE) SERUM 15.6 ng/mL (>5.38)
[2021-09-10] MEDS ORDERED: CEFAZOLIN 1000MG PREMIX 100 ML IV ONE (09:09)
[2021-09-10] MEDS ORDERED: LIDOCAINE HCL/PF 1% 10 MG/ML 5ML VIAL ONE (09:17)
[2021-09-10] MEDS ORDERED: METOCLOPRAMIDE HCL 10MG/2ML VIAL ONE (09:17)
[2021-09-10] MEDS ORDERED: PHENYLEPHRINE HCL 10 MG/ML 1ML (IV VIAL) IV ONE (09:17)
[2021-09-10] MEDS ORDERED: MIDAZOLAM HCL 2 MG/2 ML VIAL ONE (09:17)
[2021-09-10] MEDS ORDERED: ONDANSETRON HCL 4MG/2ML INJ ONE (09:17)
[2021-09-10] MEDS ORDERED: FENTANYL CITRATE/PF 50MCG/ML 2ML VIAL ONE ×2 (09:17→12:01)
[2021-09-10] MEDS ORDERED: GLYCOPYRROLATE 0.2 MG/ML 2ML VIAL ONE (09:17)
[2021-09-10] MEDS ORDERED: PROPOFOL 200MG/20ML VIAL IV ONE (09:17)
[2021-09-10] MEDS ORDERED: SUCCINYLCHOLINE CHLORIDE 200MG/10ML IV ONE (09:17)
[2021-09-10] MEDS ORDERED: CLONIDINE 0.1MG TABLET PO PRN (10:15)
[2021-09-10] MEDS ORDERED: TRAMADOL 50MG TABLET PO PRN (10:15)
[2021-09-10] MEDS ORDERED: GUAIFENESIN 200MG/10ML SUGAR FREE UDC PO PRN (10:15)
[2021-09-10] MEDS ORDERED: ACETAMINOPHEN 325MG TABLET PO PRN ×2 (10:15)
[2021-09-10] MEDS ORDERED: IPRATROPIUM/ALBUTEROL 0.5-3(2.5)MG/3ML NEB NEB PRN (10:15)
[2021-09-10] MEDS ORDERED: MAGNESIUM/ALUMINUM HYDROXIDE/SIMETHICONE 30ML UDC PO PRN (10:15)
[2021-09-10] MEDS ORDERED: ONDANSETRON HCL 4MG/2ML INJ IV PRN ×2 (10:15→13:00)
[2021-09-10] MEDS ORDERED: NITROGLYCERIN 0.4MG TABLET SL SL PRN (10:15)
[2021-09-10] MEDS ORDERED: DOCUSATE SODIUM 100MG CAPSULE PO PRN (10:15)
[2021-09-10] MEDS ORDERED: NALOXONE HCL 0.4MG/ML VIAL IV PRN (10:30)
[2021-09-10] MEDS ORDERED: FOLIC ACID 1MG TABLET PO SCH (10:30)
[2021-09-10] MEDS ORDERED: MORPHINE SULFATE 2 MG/ML CPJ (NOT FOR IM USE) IV PRN (13:00)
[2021-09-10] MEDS ORDERED: MEPERIDINE HCL/PF 25MG/ML CPJ IV PRN ×2 (13:00)
[2021-09-10] MEDS ORDERED: SODIUM CHLORIDE 0.9% 1,000 ML IV ONE (13:00)
[2021-09-10] MEDS: HYDROMORPHONE HCL/PF 2MG/ML CPJ IV PRN ×4 (13:12→22:24)
[2021-09-10] MEDS: LISINOPRIL 2.5MG TABLET PO SCH (14:12)
[2021-09-10] MEDS: FUROSEMIDE 40MG/4ML VIAL IVP SCH (14:12)
[2021-09-10] MEDS: HYDROCODONE/ACETAMINOPHEN 5/325MG TABLET PO PRN (15:52)
[2021-09-10] MEDS: ENOXAPARIN 40MG/0.4ML SYR SUBCUT SCH (16:30)
[2021-09-10] MEDS: HYDROXYCHLOROQUINE SULFATE 200MG TABLET PO SCH (17:12)
[2021-09-10] MEDS: HYDROCODONE/ACETAMINOPHEN 10/325MG TABLET PO PRN (19:47)
[2021-09-10] MEDS: FAMOTIDINE 20MG TABLET PO SCH (20:26)
[2021-09-10] MEDS: AMLODIPINE 2.5MG TABLET PO SCH (20:26)
[2021-09-10] MEDS: PREGABALIN 75MG CAPSULE PO SCH (20:26)
[2021-09-10] MEDS: CARVEDILOL 3.125 MG TABLET PO SCH (20:26)
[2021-09-10] MEDS ORDERED: ZOLPIDEM TARTRATE 5MG TABLET PO PRN (21:00)
[2021-09-11] VITALS (12 sets, daily range): BP systolic 96–127; BP diastolic 36–72
[2021-09-11 01:31] LABS: CREATINE KINASE MB FRACTION 2.1 ng/mL (0.5-3.6)
[2021-09-11] MEDS: HYDROMORPHONE HCL/PF 2MG/ML CPJ IV PRN ×4 (02:18→20:05)
[2021-09-11 06:35] LABS: HEMATOCRIT. 30.7 % (36.0-48.0); HEMOGLOBIN. 9.7 g/dL (12.0-16.0); MEAN CORPUSCULAR HEMOGLOBIN 25.7 pg (28.0-32.0); MEAN CORPUSCULAR VOLUME 81.3 fL (81.0-99.0); MEAN PLATELET VOLUME 11.2 fl (7.4-10.4); PLATELET 114 x1000/uL (130-400); RED BLOOD CELL COUNT 3.78 mill/uL (4.2-5.4); RED CELL DISTRIBUTION WIDTH 15.3 % (11.6-14.6)
[2021-09-11 06:39] LABS: CHLORIDE 109 mEq/L (98-107)
[2021-09-11 06:48] LABS: PHOSPHORUS 4.5 mg/dL (2.5-4.9)
[2021-09-11] MEDS: HYDROCODONE/ACETAMINOPHEN 10/325MG TABLET PO PRN (07:49)
[2021-09-11] MEDS: PREGABALIN 75MG CAPSULE PO SCH ×2 (08:11→20:11)
[2021-09-11] MEDS: HYDROXYCHLOROQUINE SULFATE 200MG TABLET PO SCH ×2 (08:12→16:43)
[2021-09-11] MEDS: FUROSEMIDE 40MG/4ML VIAL IVP SCH (08:12)
[2021-09-11] MEDS: FOLIC ACID 1MG TABLET PO SCH (08:12)
[2021-09-11] MEDS: LISINOPRIL 2.5MG TABLET PO SCH (08:12)
[2021-09-11] MEDS: AMLODIPINE 2.5MG TABLET PO SCH (08:12)
[2021-09-11] MEDS: CARVEDILOL 3.125 MG TABLET PO SCH (08:12)
[2021-09-11] MEDS: ASPIRIN 325MG EC TABLET PO SCH ×2 (08:12→08:15)
[2021-09-11] MEDS ORDERED: LOSARTAN POTASSIUM 25 MG TABLET PO SCH (09:00)
[2021-09-11] MEDS: ENOXAPARIN 40MG/0.4ML SYR SUBCUT SCH (10:55)
[2021-09-11] MEDS: HYDROCODONE/ACETAMINOPHEN 5/325MG TABLET PO PRN (10:56)
[2021-09-11] MEDS: CARVEDILOL 6.25 MG TABLET PO SCH (20:05)
[2021-09-11] MEDS: ATORVASTATIN CALCIUM 40MG TABLET PO SCH (20:11)
[2021-09-11] MEDS: FAMOTIDINE 20MG TABLET PO SCH (20:11)
[2021-09-12] VITALS (24 sets, daily range): BP systolic 79–138; BP diastolic 39–65
[2021-09-12] MEDS: HYDROMORPHONE HCL/PF 2MG/ML CPJ IV PRN ×6 (00:27→21:49)
[2021-09-12] MEDS ORDERED: SODIUM POLYSTYRENE SULFONATE 15 G/60 ML BOT PO NR (02:30)
[2021-09-12 04:18] LABS: PLATELET ESTIMATE DECREASED
[2021-09-12] MEDS: ASPIRIN 325MG EC TABLET PO SCH (09:00)
[2021-09-12] MEDS: CARVEDILOL 6.25 MG TABLET PO SCH ×2 (09:00→21:00)
[2021-09-12] MEDS: PREGABALIN 75MG CAPSULE PO SCH ×2 (09:00→21:43)
[2021-09-12] MEDS: FUROSEMIDE 40MG/4ML VIAL IVP SCH (09:13)
[2021-09-12] MEDS: HYDROXYCHLOROQUINE SULFATE 200MG TABLET PO SCH ×2 (09:13→17:35)
[2021-09-12] MEDS: CLOPIDOGREL 75MG TABLET PO SCH (09:13)
[2021-09-12] MEDS: FOLIC ACID 1MG TABLET PO SCH (09:13)
[2021-09-12] MEDS ORDERED: SODIUM POLYSTYRENE SULFONATE 15 G/60 ML BOT PO SCH (12:00)
[2021-09-12] MEDS: ATORVASTATIN CALCIUM 40MG TABLET PO SCH (21:43)
[2021-09-12] MEDS: FAMOTIDINE 20MG TABLET PO SCH (21:43)
[2021-09-13] VITALS: BP 99/46
[2021-09-13] MEDS: HYDROMORPHONE HCL/PF 2MG/ML CPJ IV PRN ×2 (02:20→06:14)
[2021-09-13 06:00] VITALS: BP 147/62
[2021-09-13 06:53] LABS: HEMATOCRIT. 26.4 % (36.0-48.0); HEMOGLOBIN. 8.7 g/dL (12.0-16.0); MEAN CORPUSCULAR HEMOGLOBIN 26.3 pg (28.0-32.0); MEAN CORPUSCULAR VOLUME 80.2 fL (81.0-99.0); MEAN PLATELET VOLUME 10.2 fl (7.4-10.4); PLATELET 93 x1000/uL (130-400); RED BLOOD CELL COUNT 3.29 mill/uL (4.2-5.4); RED CELL DISTRIBUTION WIDTH 14.9 % (11.6-14.6)
[2021-09-13 08:00] VITALS: BP 124/59
[2021-09-13] MEDS: HYDROXYCHLOROQUINE SULFATE 200MG TABLET PO SCH (08:31)
[2021-09-13] MEDS: CLOPIDOGREL 75MG TABLET PO SCH (08:33)
[2021-09-13] MEDS: PREGABALIN 75MG CAPSULE PO SCH (08:33)
[2021-09-13] MEDS: FOLIC ACID 1MG TABLET PO SCH (08:33)
[2021-09-13] MEDS: CARVEDILOL 6.25 MG TABLET PO SCH (08:33)
[2021-09-13] MEDS ORDERED: ASPIRIN 81MG EC TABLET PO SCH (09:00)
[2021-09-13 09:49] VITALS: BP 124/89
[2021-09-13 10:00] VITALS: BP 124/89
[2021-09-13] MEDS: HYDROCODONE/ACETAMINOPHEN 10/325MG TABLET PO PRN (10:00)
[2021-09-13 12:38] LABS: PLATELET ESTIMATE SLIGHTLY DECREASED
== END 2021-09-13 10:45 | disposition home or self-care (01) | DRG 222 ==
LOC: ER 02:01 → 3WST 04:51 → ENRESERV 07:14 → SUPCPDRO 08:01
PROVIDERS: ADMIT Internal Medicine; ATTEND Internal Medicine
PROC: 02HL3KZ Insertion of Defibrillator Lead into Left Ventricle, Percutaneous Approach (ICD-10-PCS; principal; 2021-09-10)
PROC: 0JH609Z Insertion of Cardiac Resynchronization Defibrillator Pulse Generator into Chest Subcutaneous Tissue and Fascia, Open Approach (ICD-10-PCS; 2021-09-10)
PROC: 4A023N8 Measurement of Cardiac Sampling and Pressure, Bilateral, Percutaneous Approach (ICD-10-PCS; 2021-09-10)
PROC: 02HK3KZ Insertion of Defibrillator Lead into Right Ventricle, Percutaneous Approach (ICD-10-PCS; 2021-09-10)
PROC: 02PA3MZ Removal of Cardiac Lead from Heart, Percutaneous Approach (ICD-10-PCS; 2021-09-10)
PROC: 0JPT3PZ Removal of Cardiac Rhythm Related Device from Trunk Subcutaneous Tissue and Fascia, Percutaneous Approach (ICD-10-PCS; 2021-09-10)
PROC: B2161ZZ Fluoroscopy of Right and Left Heart using Low Osmolar Contrast (ICD-10-PCS; 2021-09-10)
DX: I50.23 Acute on chronic systolic (congestive) heart failure (principal); I21.4 Non-ST elevation (NSTEMI) myocardial infarction; N17.0 Acute kidney failure with tubular necrosis; T82.120A Displacement of cardiac electrode, initial encounter; D61.818 Other pancytopenia; I25.5 Ischemic cardiomyopathy; E78.5 Hyperlipidemia, unspecified; E83.52 Hypercalcemia; G89.4 Chronic pain syndrome; I25.10 Atherosclerotic heart disease of native coronary artery without angina pectoris; I27.21 Secondary pulmonary arterial hypertension; I34.0 Nonrheumatic mitral (valve) insufficiency; I48.0 Paroxysmal atrial fibrillation; E78.00 Pure hypercholesterolemia, unspecified; Z20.822 Contact with and (suspected) exposure to COVID-19; R09.02 Hypoxemia; Y83.8 Other surgical procedures as the cause of abnormal reaction of the patient, or of later complication, without mention of misadventure at the time of the procedure; M32.9 Systemic lupus erythematosus, unspecified; E87.5 Hyperkalemia; Z90.710 Acquired absence of both cervix and uterus; Z95.5 Presence of coronary angioplasty implant and graft; Z95.810 Presence of automatic (implantable) cardiac defibrillator; Z88.0 Allergy status to penicillin; Z91.09 Other allergy status, other than to drugs and biological substances; Z79.891 Long term (current) use of opiate analgesic; Z79.899 Other long term (current) drug therapy; Z82.49 Family history of ischemic heart disease and other diseases of the circulatory system; Z90.49 Acquired absence of other specified parts of digestive tract; Y92.89 Other specified places as the place of occurrence of the external cause
CPT/HCPCS: 33225; 33233; 33235; 33249; 36415; 71045; 75820; 80048; 80053; 80061; 82550; 82553; 82607; 82746; 83036; 83540; 83550; 83735; 83880; 84100; 84439; 84443; 84484; 85025; 87426; 93005; 93451; 93641; 93970; 99285; C1769; C1882; C1887; C1893; C1898; C1899; C1900; J0330; J0690; J1170; J1580; J1644; J1650; J1940; J2250; J2370; J2405; J2704; J2765; J3010; J3490; J7040; Q9967

== ENCOUNTER 2021-11-29 14:03 | Inpatient (IN) | payer MEDICARE, MEDICAID ==
[~2021-11-29] VITALS: Ht 170.2 cm; Wt 108.0 kg
[2021-11-29] MEDS ORDERED: ASPIRIN 81MG TABLET PO ONE (14:45)
[2021-11-29] MEDS ORDERED: KETOROLAC 30MG/ML VIAL IV STA (16:29)
[2021-11-29] MEDS ORDERED: ONDANSETRON HCL 4MG/2ML INJ IV STA (16:29)
[2021-11-29] MEDS ORDERED: SODIUM CHLORIDE 0.9% 1,000 ML IV ONE (16:30)
[2021-11-29 20:08] LABS: HEMOGLOBIN. 10.4 g/dL (12.0-16.0); MEAN CORPUSCULAR HEMOGLOBIN 24.8 pg (28.0-32.0); MEAN CORPUSCULAR VOLUME 78.8 fL (81.0-99.0); MEAN PLATELET VOLUME 9.6 fl (7.4-10.4); PLATELET 123 x1000/uL (130-400); RED BLOOD CELL COUNT 4.19 mill/uL (4.2-5.4); RED CELL DISTRIBUTION WIDTH 15.3 % (11.6-14.6)
[2021-11-29 20:14] LABS: CHLORIDE 115 mEq/L (98-107)
[2021-11-29] MEDS ORDERED: SODIUM CHLORIDE 0.9% 1000ML BAG (SEPSIS BOLUS) IV ONE (20:30)
[2021-11-29] MEDS ORDERED: VANCOMYCIN 1 G PREMIX 200 ML IV ONE (20:30)
[2021-11-29 22:45] LABS: PLATELET ESTIMATE SLIGHTLY DECREASED
[2021-11-29] MEDS ORDERED: LEVOFLOXACIN 750MG PREMIX 150 ML IV ONE (22:45)
[2021-11-29] MEDS ORDERED: GUAIFENESIN 200MG/10ML SUGAR FREE UDC PO PRN (23:00)
[2021-11-29] MEDS ORDERED: NA PHOS,M-B/NA PHOS,DI-BA ENEMA 118ML PR PRN (23:00)
[2021-11-29] MEDS ORDERED: DOCUSATE SODIUM 100MG CAPSULE PO PRN (23:00)
[2021-11-29] MEDS ORDERED: ONDANSETRON HCL 4MG/2ML INJ IV PRN (23:00)
[2021-11-29] MEDS ORDERED: IPRATROPIUM/ALBUTEROL 0.5-3(2.5)MG/3ML NEB NEB PRN (23:00)
[2021-11-29] MEDS ORDERED: NITROGLYCERIN 0.4MG TABLET SL SL PRN (23:00)
[2021-11-29] MEDS ORDERED: ACETAMINOPHEN 325MG TABLET PO PRN ×2 (23:00)
[2021-11-29] MEDS ORDERED: MAGNESIUM/ALUMINUM HYDROXIDE/SIMETHICONE 30ML UDC PO PRN (23:00)
[2021-11-29 23:29] LABS: ETHANOL BLOOD < 10 mg/dL
[2021-11-29 23:31] LABS: TOTAL IRON BINDING CAPACITY 203 ug/dL (250-450)
[2021-11-29] MEDS ORDERED: ZOLPIDEM TARTRATE 5MG TABLET PO PRN (23:40)
[2021-11-29] MEDS ORDERED: KETOROLAC 15MG/ML VIAL IV PRN (23:41)
[2021-11-29 23:42] LABS: FOLIC ACID (FOLATE) SERUM 17.7 ng/mL (>5.38)
[2021-11-29] MEDS ORDERED: ENOXAPARIN 40MG/0.4ML SYR SUBCUT SCH (23:45)
[2021-11-29] MEDS ORDERED: FILGRASTIM-TBO 300 MCG/0.5 ML SYRINGE SQ NR (23:45)
[2021-11-30] MEDS: AMLODIPINE 10MG TABLET PO SCH ×2 (02:01→09:59)
[2021-11-30] MEDS: HYDROCODONE/ACETAMINOPHEN 10/325MG TABLET PO PRN ×3 (02:01→21:05)
[2021-11-30 06:36] LABS: CLARITY URINE CLEAR (CLEAR); COLOR URINE YELLOW (YELLOW); KETONES URINE NEGATIVE (NEGATIVE); LEUKOCYTE ESTERASE URINE NEGATIVE (NEGATIVE); NITRITE URINE NEGATIVE (NEGATIVE); OCCULT BLOOD URINE NEGATIVE (NEGATIVE); PROTEIN URINE 2+ (NEGATIVE); UROBILINOGEN URINE 0.2 E.U./dL (0.2-1.0)
[2021-11-30 06:56] LABS: *BARBITURATES SCREEN URINE NEGATIVE (NEGATIVE)
[2021-11-30 06:57] LABS: *COCAINE SCREEN URINE NEGATIVE (NEGATIVE); CANNABINOID URINE SCREEN NEGATIVE (NEGATIVE); METHADONE URINE SCREEN NEGATIVE (NEGATIVE); OPIATES URINE SCREEN PRESUMTIVE POSITIVE (NEGATIVE); PHENCYCLIDINE URINE SCREEN NEGATIVE (NEGATIVE)
[2021-11-30 06:59] LABS: *BENZODIAZEPINES SCREEN URINE NEGATIVE (NEGATIVE)
[2021-11-30 07:11] LABS: *AMPHETAMINES SCREEN URINE NEGATIVE (NEGATIVE)
[2021-11-30 08:36] LABS: CHLORIDE 119 mEq/L (98-107); HEMATOCRIT. 30.6 % (36.0-48.0); HEMOGLOBIN. 9.9 g/dL (12.0-16.0); MEAN CORPUSCULAR HEMOGLOBIN 25.5 pg (28.0-32.0); MEAN CORPUSCULAR VOLUME 79.2 fL (81.0-99.0); MEAN PLATELET VOLUME 9.8 fl (7.4-10.4); PLATELET 103 x1000/uL (130-400); RED BLOOD CELL COUNT 3.87 mill/uL (4.2-5.4); RED CELL DISTRIBUTION WIDTH 14.8 % (11.6-14.6)
[2021-11-30 08:50] LABS: PHOSPHORUS 2.9 mg/dL (2.5-4.9)
[2021-11-30 08:56] LABS: CREATINE KINASE MB FRACTION 1.2 ng/mL (0.5-3.6)
[2021-11-30 09:30] VITALS: BP 167/76
[2021-11-30] MEDS: FAMOTIDINE 20MG TABLET PO SCH ×2 (09:59→20:46)
[2021-11-30] MEDS: CHOLECALCIFEROL (D3) 1000 UNIT TABLET PO SCH (09:59)
[2021-11-30] MEDS: ASPIRIN 325MG EC TABLET PO SCH (09:59)
[2021-11-30] MEDS: ASCORBIC ACID 500 MG TABLET PO SCH ×2 (09:59→20:46)
[2021-11-30] MEDS: ZINC SULFATE 220 MG ( 50 ) CAPSULE PO SCH (10:00)
[2021-11-30 12:00] VITALS: BP 156/78
[2021-11-30 16:00] VITALS: BP 167/76
[2021-11-30] MEDS: CLONIDINE 0.1MG TABLET PO PRN (16:26)
[2021-11-30 16:39] LABS: PLATELET ESTIMATE DECREASED
[2021-11-30 18:10] LABS: CREATINE KINASE MB FRACTION 1.5 ng/mL (0.5-3.6)
[2021-11-30 20:00] VITALS: BP 154/64
[2021-11-30] MEDS: ENOXAPARIN 30MG/0.3ML SYR SUBCUT SCH (20:46)
[2021-12-01] VITALS: BP 156/79
[2021-12-01] MEDS: HYDROCODONE/ACETAMINOPHEN 10/325MG TABLET PO PRN ×4 (00:39→20:38)
[2021-12-01 04:00] VITALS: BP 137/58
[2021-12-01 08:00] VITALS: BP 140/69
[2021-12-01] MEDS: ZINC SULFATE 220 MG ( 50 ) CAPSULE PO SCH (08:35)
[2021-12-01] MEDS: ASPIRIN 325MG EC TABLET PO SCH (08:35)
[2021-12-01] MEDS: FAMOTIDINE 20MG TABLET PO SCH ×2 (08:36→20:39)
[2021-12-01] MEDS: ENOXAPARIN 30MG/0.3ML SYR SUBCUT SCH ×2 (08:36→20:33)
[2021-12-01] MEDS: ASCORBIC ACID 500 MG TABLET PO SCH ×2 (08:36→20:39)
[2021-12-01] MEDS: CHOLECALCIFEROL (D3) 1000 UNIT TABLET PO SCH (08:36)
[2021-12-01] MEDS: AMLODIPINE 10MG TABLET PO SCH (08:37)
[2021-12-01 12:00] VITALS: BP 144/71
[2021-12-01] MEDS: CLONIDINE 0.1MG TABLET PO PRN (13:07)
[2021-12-01] MEDS ORDERED: HYDR200T80 MT (13:41)
[2021-12-01 15:54] VITALS: BP 146/70
[2021-12-01 20:00] VITALS: BP 145/75
[2021-12-02] VITALS: BP 144/72
[2021-12-02 04:00] VITALS: BP 146/68
[2021-12-02] MEDS: HYDROCODONE/ACETAMINOPHEN 10/325MG TABLET PO PRN ×3 (07:33→22:55)
[2021-12-02 08:00] VITALS: BP 144/70
[2021-12-02] MEDS: ASPIRIN 325MG EC TABLET PO SCH (08:53)
[2021-12-02] MEDS: AMLODIPINE 10MG TABLET PO SCH (08:54)
[2021-12-02] MEDS: ENOXAPARIN 30MG/0.3ML SYR SUBCUT SCH ×2 (08:54→20:53)
[2021-12-02] MEDS: ASCORBIC ACID 500 MG TABLET PO SCH ×2 (09:00→20:53)
[2021-12-02] MEDS: CHOLECALCIFEROL (D3) 1000 UNIT TABLET PO SCH (09:00)
[2021-12-02] MEDS: FAMOTIDINE 20MG TABLET PO SCH ×2 (09:00→20:53)
[2021-12-02] MEDS: ZINC SULFATE 220 MG ( 50 ) CAPSULE PO SCH (09:00)
[2021-12-02 12:00] VITALS: BP 156/68
[2021-12-02 16:00] VITALS: BP 155/71
[2021-12-02 16:03] LABS: BASOPHILS % 0.2 % (0.0-2.0); EOSINOPHILS % 1.5 % (0.0-5.0); HEMATOCRIT. 31.5 % (36.0-48.0); HEMOGLOBIN. 9.9 g/dL (12.0-16.0); LYMPHOCYTES % 11.5 % (20.0-50.0); MEAN CORPUSCULAR HEMOGLOBIN 24.3 pg (28.0-32.0); MEAN CORPUSCULAR VOLUME 77.6 fL (81.0-99.0); MEAN PLATELET VOLUME 9.3 fl (7.4-10.4); MONOCYTES % 7.1 % (2.0-8.0); NEUTROPHILS % 79.7 % (40.0-76.0); PLATELET 120 x1000/uL (130-400); RED BLOOD CELL COUNT 4.06 mill/uL (4.2-5.4); RED CELL DISTRIBUTION WIDTH 15.4 % (11.6-14.6)
[2021-12-02 20:00] VITALS: BP 158/71
[2021-12-03 04:00] VITALS: BP 152/70
[2021-12-03] MEDS: HYDROCODONE/ACETAMINOPHEN 10/325MG TABLET PO PRN ×2 (05:27→11:27)
[2021-12-03 08:00] VITALS: BP 176/70
[2021-12-03] MEDS: ZINC SULFATE 220 MG ( 50 ) CAPSULE PO SCH (09:00)
[2021-12-03] MEDS: CHOLECALCIFEROL (D3) 1000 UNIT TABLET PO SCH (09:00)
[2021-12-03] MEDS: FAMOTIDINE 20MG TABLET PO SCH (09:00)
[2021-12-03] MEDS: ASCORBIC ACID 500 MG TABLET PO SCH (09:00)
[2021-12-03] MEDS: ASPIRIN 325MG EC TABLET PO SCH (09:40)
[2021-12-03] MEDS: AMLODIPINE 10MG TABLET PO SCH (09:40)
[2021-12-03] MEDS: ENOXAPARIN 30MG/0.3ML SYR SUBCUT SCH (09:40)
[2021-12-03] MEDS: CLONIDINE 0.1MG TABLET PO PRN (09:41)
[2021-12-03 10:58] VITALS: BP 145/63
[2021-12-03 11:27] VITALS: BP 170/76
== END 2021-12-03 21:08 | disposition home or self-care (01) | DRG 291 ==
LOC: ER 14:19 → 5EST 22:32 → EDBEDREQ 23:00 → EDBEDREQTM 23:00 → ENRESERV 11-30 07:40
PROVIDERS: ADMIT Internal Medicine; ATTEND Internal Medicine
DX: I50.43 Acute on chronic combined systolic (congestive) and diastolic (congestive) heart failure (principal); N17.0 Acute kidney failure with tubular necrosis; I16.1 Hypertensive emergency; E44.0 Moderate protein-calorie malnutrition; I11.0 Hypertensive heart disease with heart failure; D63.8 Anemia in other chronic diseases classified elsewhere; D70.9 Neutropenia, unspecified; M32.9 Systemic lupus erythematosus, unspecified; Z20.822 Contact with and (suspected) exposure to COVID-19; I25.10 Atherosclerotic heart disease of native coronary artery without angina pectoris; Z95.810 Presence of automatic (implantable) cardiac defibrillator; Z88.0 Allergy status to penicillin; Z88.8 Allergy status to other drugs, medicaments and biological substances; Z79.899 Other long term (current) drug therapy; Z79.891 Long term (current) use of opiate analgesic; Z90.710 Acquired absence of both cervix and uterus; Z68.37 Body mass index [BMI] 37.0-37.9, adult
CPT/HCPCS: 36415; 71045; 73502; 80053; 80305; 80320; 81003; 82550; 82553; 82607; 82746; 83540; 83550; 83605; 83735; 83880; 84100; 84443; 84484; 85025; 87426; 93005; 93306; 93970; 97165; 97530; 99285; J1442; J1650; J1885; J1956; J2405; J3370; J7030; G0480

== ENCOUNTER 2022-09-19 21:51 | Inpatient (IN) | payer MEDICARE, MEDICAID ==
[~2022-09-19] VITALS: Ht 165.1 cm; Wt 99.8 kg
[~2022-09-19 21:51] MED LIST changes: +HYDR200T80 MT
[2022-09-20 00:10] LABS: BASOPHILS % 0.6 % (0.0-2.0); EOSINOPHILS % 3.2 % (0.0-5.0); HEMATOCRIT. 31.7 % (36.0-48.0); HEMOGLOBIN. 10.2 g/dL (12.0-16.0); MEAN CORPUSCULAR HEMOGLOBIN 24.8 pg (28.0-32.0); MEAN CORPUSCULAR VOLUME 77.1 fL (81.0-99.0); MEAN PLATELET VOLUME 10.1 fl (7.4-10.4); MONOCYTES % 12.5 % (2.0-8.0); NEUTROPHILS % 58.7 % (40.0-76.0); PLATELET 101 x1000/uL (130-400); RED BLOOD CELL COUNT 4.11 mill/uL (4.2-5.4); RED CELL DISTRIBUTION WIDTH 16.4 % (11.6-14.6)
[2022-09-20 00:16] LABS: CHLORIDE 112 mEq/L (98-107)
[2022-09-20] MEDS ORDERED: ACETAMINOPHEN 325MG TABLET PO PRN ×2 (04:45)
[2022-09-20] MEDS ORDERED: GUAIFENESIN 200MG/10ML SUGAR FREE UDC PO PRN (04:45)
[2022-09-20] MEDS ORDERED: MAGNESIUM/ALUMINUM HYDROXIDE/SIMETHICONE 30ML UDC PO PRN (04:45)
[2022-09-20] MEDS ORDERED: ONDANSETRON HCL 4MG/2ML INJ IV PRN (04:45)
[2022-09-20] MEDS ORDERED: DOCUSATE SODIUM 100MG CAPSULE PO PRN (04:45)
[2022-09-20] MEDS ORDERED: IPRATROPIUM/ALBUTEROL 0.5-3(2.5)MG/3ML NEB HHN PRN (04:45)
[2022-09-20 08:00] VITALS: BP 134/68
[2022-09-20 10:12] VITALS: BP 134/68
[2022-09-20] MEDS: LOSARTAN POTASSIUM 25 MG TABLET PO SCH (10:38)
[2022-09-20] MEDS: HYDROXYCHLOROQUINE SULFATE 200MG TABLET PO SCH ×2 (10:38→16:11)
[2022-09-20] MEDS: FOLIC ACID 1MG TABLET PO SCH (10:39)
[2022-09-20] MEDS: PREGABALIN 75MG CAPSULE PO SCH ×3 (10:40→21:19)
[2022-09-20] MEDS: ENOXAPARIN 40MG/0.4ML SYR SUBCUT SCH (10:40)
[2022-09-20] MEDS: AMLODIPINE 2.5MG TABLET PO SCH ×2 (10:40→21:19)
[2022-09-20] MEDS: HYDROCODONE/ACETAMINOPHEN 5/325MG TABLET PO PRN ×3 (10:52→22:29)
[2022-09-20 12:00] VITALS: BP 134/60
[2022-09-20 12:01] LABS: CHLORIDE 116 mEq/L (98-107)
[2022-09-20 12:34] LABS: CREATINE KINASE 43 IU/L (26-192); CREATINE KINASE MB FRACTION 1.8 ng/mL (0.5-3.6)
[2022-09-20 16:00] VITALS: BP 150/60
[2022-09-20 16:24] LABS: BASOPHILS % 0.8 % (0.0-2.0); EOSINOPHILS % 3.4 % (0.0-5.0); HEMATOCRIT. 31.3 % (36.0-48.0); HEMOGLOBIN. 9.9 g/dL (12.0-16.0); LYMPHOCYTES % 29.6 % (20.0-50.0); MEAN CORPUSCULAR HEMOGLOBIN 24.8 pg (28.0-32.0); MEAN CORPUSCULAR VOLUME 78.6 fL (81.0-99.0); MEAN PLATELET VOLUME 10.4 fl (7.4-10.4); MONOCYTES % 13.2 % (2.0-8.0); PLATELET 103 x1000/uL (130-400); RED BLOOD CELL COUNT 3.99 mill/uL (4.2-5.4); RED CELL DISTRIBUTION WIDTH 16.5 % (11.6-14.6)
[2022-09-20 20:00] VITALS: BP_SYST 140; BP_SYST 142; BP_DIAS 55; BP_DIAS 57
[2022-09-20 21:42] LABS: CREATINE KINASE MB FRACTION 1.4 ng/mL (0.5-3.6)
[2022-09-21] VITALS: BP 153/70
[2022-09-21] MEDS: HYDROCODONE/ACETAMINOPHEN 5/325MG TABLET PO PRN ×3 (03:45→15:29)
[2022-09-21 03:47] VITALS: BP 138/51
[2022-09-21 07:09] LABS: BASOPHILS % 0.4 % (0.0-2.0); EOSINOPHILS % 3.1 % (0.0-5.0); HEMATOCRIT. 32.3 % (36.0-48.0); LYMPHOCYTES % 29.9 % (20.0-50.0); MEAN CORPUSCULAR HEMOGLOBIN 24.8 pg (28.0-32.0); MEAN CORPUSCULAR VOLUME 80.3 fL (81.0-99.0); MEAN PLATELET VOLUME 10.5 fl (7.4-10.4); MONOCYTES % 14.3 % (2.0-8.0); NEUTROPHILS % 52.3 % (40.0-76.0); RED BLOOD CELL COUNT 4.02 mill/uL (4.2-5.4); RED CELL DISTRIBUTION WIDTH 16.6 % (11.6-14.6)
[2022-09-21 08:00] VITALS: BP 134/52
[2022-09-21 08:44] LABS: PLATELET 65 x1000/uL (130-400)
[2022-09-21] MEDS: PREGABALIN 75MG CAPSULE PO SCH ×2 (08:54→20:39)
[2022-09-21] MEDS: ENOXAPARIN 40MG/0.4ML SYR SUBCUT SCH (08:56)
[2022-09-21] MEDS: LOSARTAN POTASSIUM 25 MG TABLET PO SCH (08:57)
[2022-09-21] MEDS: HYDROXYCHLOROQUINE SULFATE 200MG TABLET PO SCH ×2 (08:57→16:42)
[2022-09-21] MEDS: FOLIC ACID 1MG TABLET PO SCH (08:57)
[2022-09-21] MEDS: AMLODIPINE 2.5MG TABLET PO SCH (08:57)
[2022-09-21 11:37] LABS: CHLORIDE 112 mEq/L (98-107)
[2022-09-21 12:00] VITALS: BP_SYST 140; BP_SYST 171; BP_DIAS 72; BP_DIAS 73; BP_DIAS 86
[2022-09-21 12:06] LABS: T4 FREE 1.08 ng/dL (0.76-1.46)
[2022-09-21 12:44] LABS: HDL CHOLESTEROL 52 mg/dL (40-59); LDL CHOLESTEROL 70 mg/dL (5-100)
[2022-09-21] MEDS ORDERED: NALOXONE HCL 0.4MG/ML VIAL IV PRN (12:45)
[2022-09-21] MEDS: MECLIZINE 25MG TABLET PO PRN (15:29)
[2022-09-21 16:00] VITALS: BP 136/50
[2022-09-21 20:00] VITALS: BP 136/52
[2022-09-21] MEDS: AMLODIPINE 5MG TABLET PO SCH (21:05)
[2022-09-22 00:04] VITALS: BP 158/60
[2022-09-22] MEDS: HYDROCODONE/ACETAMINOPHEN 5/325MG TABLET PO PRN ×4 (00:06→20:57)
[2022-09-22] MEDS: MECLIZINE 25MG TABLET PO PRN ×3 (00:08→21:04)
[2022-09-22 04:00] VITALS: BP 147/80
[2022-09-22 08:00] VITALS: BP 164/68
[2022-09-22 08:29] LABS: BASOPHILS % 0.8 % (0.0-2.0); EOSINOPHILS % 2.8 % (0.0-5.0); HEMATOCRIT. 29.8 % (36.0-48.0); HEMOGLOBIN. 9.5 g/dL (12.0-16.0); LYMPHOCYTES % 29.4 % (20.0-50.0); MEAN CORPUSCULAR HEMOGLOBIN 24.7 pg (28.0-32.0); MEAN CORPUSCULAR VOLUME 77.3 fL (81.0-99.0); MEAN PLATELET VOLUME 11.6 fl (7.4-10.4); MONOCYTES % 11.7 % (2.0-8.0); NEUTROPHILS % 55.3 % (40.0-76.0); PLATELET 95 x1000/uL (130-400); RED BLOOD CELL COUNT 3.85 mill/uL (4.2-5.4); RED CELL DISTRIBUTION WIDTH 16.4 % (11.6-14.6)
[2022-09-22] MEDS: PREGABALIN 75MG CAPSULE PO SCH ×3 (09:00→21:00)
[2022-09-22] MEDS ORDERED: LOSARTAN POTASSIUM 50 MG TABLET PO SCH (09:00)
[2022-09-22] MEDS: FOLIC ACID 1MG TABLET PO SCH (09:48)
[2022-09-22] MEDS: HYDROXYCHLOROQUINE SULFATE 200MG TABLET PO SCH ×2 (09:48→17:54)
[2022-09-22] MEDS: AMLODIPINE 5MG TABLET PO SCH ×2 (09:48→20:56)
[2022-09-22 12:00] VITALS: BP_SYST 155; BP_SYST 169; BP_SYST 171; BP_DIAS 59; BP_DIAS 64; BP_DIAS 71
[2022-09-22] MEDS: CLONIDINE 0.1MG TABLET PO PRN (14:05)
[2022-09-22 16:00] VITALS: BP_SYST 112; BP_SYST 115; BP_DIAS 42; BP_DIAS 66; BP_DIAS 67
[2022-09-22 20:00] VITALS: BP 120/50
[2022-09-23] VITALS: BP 119/34
[2022-09-23] MEDS: HYDROCODONE/ACETAMINOPHEN 5/325MG TABLET PO PRN ×4 (01:56→21:55)
[2022-09-23 04:00] VITALS: BP_SYST 115; BP_SYST 122; BP_DIAS 44
[2022-09-23] MEDS: MECLIZINE 25MG TABLET PO PRN ×2 (05:59→17:28)
[2022-09-23 08:00] VITALS: BP 128/50
[2022-09-23] MEDS: PREGABALIN 75MG CAPSULE PO SCH ×2 (09:00→21:00)
[2022-09-23] MEDS: AMLODIPINE 5MG TABLET PO SCH ×2 (09:17→21:51)
[2022-09-23] MEDS: HYDROXYCHLOROQUINE SULFATE 200MG TABLET PO SCH ×2 (09:17→17:28)
[2022-09-23] MEDS: FOLIC ACID 1MG TABLET PO SCH (09:17)
[2022-09-23 12:00] VITALS: BP 153/54
[2022-09-23 16:02] VITALS: BP 157/55
[2022-09-23 20:00] VITALS: BP 114/58
[2022-09-24] VITALS: BP 137/62
[2022-09-24 04:00] VITALS: BP 162/65
[2022-09-24 07:44] LABS: BASOPHILS % 0.6 % (0.0-2.0); EOSINOPHILS % 3.3 % (0.0-5.0); HEMATOCRIT. 31.7 % (36.0-48.0); HEMOGLOBIN. 10.1 g/dL (12.0-16.0); LYMPHOCYTES % 23.4 % (20.0-50.0); MEAN CORPUSCULAR HEMOGLOBIN 24.6 pg (28.0-32.0); MEAN CORPUSCULAR VOLUME 77.5 fL (81.0-99.0); MEAN PLATELET VOLUME 11.7 fl (7.4-10.4); MONOCYTES % 12.1 % (2.0-8.0); NEUTROPHILS % 60.6 % (40.0-76.0); PLATELET 94 x1000/uL (130-400); RED BLOOD CELL COUNT 4.09 mill/uL (4.2-5.4); RED CELL DISTRIBUTION WIDTH 16.2 % (11.6-14.6)
[2022-09-24 07:53] VITALS: BP 127/69
[2022-09-24] MEDS: MECLIZINE 25MG TABLET PO PRN ×2 (08:40→17:52)
[2022-09-24] MEDS: HYDROXYCHLOROQUINE SULFATE 200MG TABLET PO SCH ×2 (08:41→17:52)
[2022-09-24] MEDS: AMLODIPINE 5MG TABLET PO SCH ×2 (08:41→21:05)
[2022-09-24] MEDS: HYDROCODONE/ACETAMINOPHEN 5/325MG TABLET PO PRN ×2 (08:41→17:58)
[2022-09-24] MEDS: FOLIC ACID 1MG TABLET PO SCH (08:41)
[2022-09-24] MEDS: PREGABALIN 75MG CAPSULE PO SCH ×2 (08:43→21:00)
[2022-09-24 12:00] VITALS: BP 113/58
[2022-09-24 16:00] VITALS: BP 125/60
[2022-09-24 20:00] VITALS: BP 136/53
[2022-09-25] VITALS (7 sets, daily range): BP systolic 123–157; BP diastolic 50–80
[2022-09-25] MEDS: HYDROCODONE/ACETAMINOPHEN 5/325MG TABLET PO PRN (01:29)
[2022-09-25] MEDS: HYDROXYCHLOROQUINE SULFATE 200MG TABLET PO SCH ×2 (08:25→16:35)
[2022-09-25] MEDS: FOLIC ACID 1MG TABLET PO SCH (08:25)
[2022-09-25] MEDS: PREGABALIN 75MG CAPSULE PO SCH ×2 (08:25→20:33)
[2022-09-25] MEDS: AMLODIPINE 5MG TABLET PO SCH ×2 (08:25→20:11)
[2022-09-25] MEDS: MECLIZINE 25MG TABLET PO PRN ×3 (11:12→20:33)
[2022-09-26 04:25] VITALS: BP 134/56
[2022-09-26 08:00] VITALS: BP 125/58
[2022-09-26] MEDS: FOLIC ACID 1MG TABLET PO SCH (08:16)
[2022-09-26] MEDS: MECLIZINE 25MG TABLET PO PRN ×2 (08:16→18:50)
[2022-09-26] MEDS: HYDROXYCHLOROQUINE SULFATE 200MG TABLET PO SCH ×2 (08:16→16:07)
[2022-09-26] MEDS: AMLODIPINE 5MG TABLET PO SCH ×2 (08:17→20:54)
[2022-09-26] MEDS: PREGABALIN 75MG CAPSULE PO SCH ×2 (08:23→21:00)
[2022-09-26 12:00] VITALS: BP 130/64
[2022-09-26 16:00] VITALS: BP 129/51
[2022-09-26 20:00] VITALS: BP_SYST 139; BP_SYST 156; BP_DIAS 62; BP_DIAS 89
[2022-09-27] VITALS: BP 121/48
[2022-09-27] MEDS: MECLIZINE 25MG TABLET PO PRN (04:16)
[2022-09-27 06:51] LABS: HEMATOCRIT 30.9 % (36.0-48.0); HEMOGLOBIN 9.9 g/dL (12.0-16.0); MEAN CORPUSCULAR HEMOGLOBIN 24.6 pg (28.0-32.0); MEAN CORPUSCULAR VOLUME 76.6 fL (81.0-99.0); PLATELET 96 x1000/uL (130-400); RED BLOOD CELL COUNT 4.03 mill/uL (4.2-5.4); RED CELL DISTRIBUTION WIDTH 15.8 % (11.6-14.6)
[2022-09-27 07:49] VITALS: BP 134/49
[2022-09-27] MEDS: PREGABALIN 75MG CAPSULE PO SCH (09:00)
[2022-09-27] MEDS: HYDROXYCHLOROQUINE SULFATE 200MG TABLET PO SCH (09:24)
[2022-09-27] MEDS: AMLODIPINE 5MG TABLET PO SCH (09:24)
[2022-09-27] MEDS: FOLIC ACID 1MG TABLET PO SCH (09:25)
[2022-09-27 11:53] VITALS: BP_SYST 153; BP_SYST 165; BP_SYST 179; BP_DIAS 76; BP_DIAS 79; BP_DIAS 89
[2022-09-27] MEDS: CLONIDINE 0.1MG TABLET PO PRN (11:58)
[2022-09-27] MEDS ORDERED: SODIUM POLYSTYRENE SULFONATE 15 G/60 ML BOT PO NR (13:00)
[2022-09-27 15:19] VITALS: BP 128/53
[2022-09-27 15:30] VITALS: BP 128/53
== END 2022-09-27 15:50 | disposition home or self-care (01) | DRG 73 ==
LOC: ER 21:51 → 8WST 09-20 01:19 → ENRESERV 09-20 05:37
PROVIDERS: ADMIT Hospitalist; ATTEND Hospitalist
PROC: 4A00X4Z Measurement of Central Nervous Electrical Activity, External Approach (ICD-10-PCS; principal; 2022-09-23)
DX: G90.8 Other disorders of autonomic nervous system (principal); N17.0 Acute kidney failure with tubular necrosis; I13.0 Hypertensive heart and chronic kidney disease with heart failure and stage 1 through stage 4 chronic kidney disease, or unspecified chronic kidney disease; D61.818 Other pancytopenia; I50.32 Chronic diastolic (congestive) heart failure; I27.21 Secondary pulmonary arterial hypertension; D69.6 Thrombocytopenia, unspecified; D63.8 Anemia in other chronic diseases classified elsewhere; I25.10 Atherosclerotic heart disease of native coronary artery without angina pectoris; D72.819 Decreased white blood cell count, unspecified; G62.9 Polyneuropathy, unspecified; I25.5 Ischemic cardiomyopathy; N18.9 Chronic kidney disease, unspecified; M32.9 Systemic lupus erythematosus, unspecified; R26.9 Unspecified abnormalities of gait and mobility; I48.0 Paroxysmal atrial fibrillation; Z88.0 Allergy status to penicillin; Z88.8 Allergy status to other drugs, medicaments and biological substances; Z91.81 History of falling; Z95.0 Presence of cardiac pacemaker; Z95.5 Presence of coronary angioplasty implant and graft; I25.2 Old myocardial infarction; Z79.899 Other long term (current) drug therapy; Z90.710 Acquired absence of both cervix and uterus; Z82.49 Family history of ischemic heart disease and other diseases of the circulatory system
CPT/HCPCS: 36415; 71045; 80048; 80053; 80061; 82550; 82553; 83036; 83735; 84439; 84443; 84484; 85025; 85027; 93005; 93306; 93880; 97162; 97166; 99285; J1650; J8597